=== PATIENT | female | born 1935 | race Caucasian/White ===

== ENCOUNTER 2016-12-05 17:53 | Inpatient (IN) | payer MEDICARE, BC ==
[2016-12-05] MEDS ORDERED: Famotidine IV* 10 MG/ML 2 ML (20 mg) IV ONE (18:47)
[2016-12-05] MEDS ORDERED: Ondansetron INJ* 2 MG/ML VIAL IV ONE (18:47)
[2016-12-05] MEDS ORDERED: NS 0.9% 1000 ML* 1,000 ML IV ONE (18:47)
[2016-12-05 19:32] LABS: Hematocrit 25 % (35-47); Mean Corpuscular HGB Conc 28 g/dl (31-36); Mean Corpuscular Hemoglobin 17 pg (27-31); Mean Corpuscular Volume 59 fL (80-97); Mean Platelet Volume 8 um3 (7.4-10.4); Red Blood Count 4.15 10^6/ul (4.0-5.4); Red Cell Distribution Width 17 % (10.5-15); White Blood Count 18.5 10^3/ul (3.5-10.8)
[2016-12-05 19:34] LABS: Add Diff/Slide Review? Slide Review Added; Comments Flag Yes
[2016-12-05 19:54] LABS: ALT 10 U/L (7-52); Albumin 3.7 g/dL (3.2-5.2); Alkaline Phosphatase 102 U/L (34-104); Amylase 121 U/L (29-103); Blood Urea Nitrogen 16 mg/dL (6-24); C Reactive Protein 91.29 mg/L (< 5.00); CO2 Carbon Dioxide 22 mmol/L (22-32); Calcium 9.6 mg/dL (8.6-10.3); Chloride 102 mmol/L (101-111); EGFR African American 88.5 (>60); EGFR Non-African American 68.8 (>60); Globulin 3.5 g/dL (2-4); Glucose 125 mg/dL (70-100); Lipase 475 U/L (11.0-82.0); Sodium 134 mmol/L (133-145); Total Protein 7.2 g/dL (6.4-8.9)
[2016-12-05 19:55] LABS: Troponin I 0.01 ng/mL (<0.04)
[2016-12-05] MEDS ORDERED: Iohexol 300* (CONTRAST) 10 ML SDV IV ONE (20:31)
[2016-12-05] MEDS ORDERED: LORazepam INJ* 2 MG/ML 1 ML VIAL IV PRN (20:53)
[2016-12-05] MEDS ORDERED: Ondansetron INJ* 2 MG/ML VIAL IV PRN (20:54)
[2016-12-05] MEDS ORDERED: Pantoprazole IV* 40 MG IV SCH (21:00)
[2016-12-05 21:06] LABS: AST 18 U/L (13-39); Anion Gap 10 mmol/L (2-11); Potassium 3.8 mmol/L (3.5-5.0)
[2016-12-05 21:14] LABS: Corrected Retic Count 0.9 % (0.5-1.5); Immature Retic Fraction 0.41
[2016-12-05 21:26] LABS: Total Iron Binding Capacity 542 mcg/dL (250-450); Transferrin 387 mg/dL (203-362)
[2016-12-05] MEDS: HYDROmorphone INJ* 1 MG/ML CARPUJECT SYRINGE IV PRN ×2 (21:38→23:28)
[2016-12-05 21:44] LABS: Iron 12 ug/dL (50-212)
[2016-12-05 21:47] LABS: Ferritin 11.3 ng/mL (11-307)
[2016-12-05 21:50] LABS: Folate > 20.00 ng/mL (>3.99)
[2016-12-05 21:51] LABS: Vitamin B12 > 1450 pg/mL (180-914)
--- NOTE | 2016-12-05 21:54 | RAD ---
INDICATION: Abdominal pain. Surgical history includes partial hysterectomy. COMPARISON: April 17, 2004 TECHNIQUE: Multidetector CT images were obtained from the lung bases to the ischial tuberosities with 76 mL Omnipaque 300 IV and oral contrast. Multiplanar reformation. REPORT: Mild bibasilar atelectasis and pleural-parenchymal scarring. 3 mm low suspicion. Fissural nodule at the RIGHT middle lobe. Mild cardiomegaly. Unremarkable liver. Partially decompressed gallbladder without suspicious finding. Peripancreatic inflammation the level of the pancreatic tail which appears secondary to a posterior gastric body perforation with extravasation of enteric contrast to the lesser sac. The gastric perforation is likely approximately 0.8 cm diameter. Loculated gas and fluid collection in the lesser sac measures up to 2.6 cm AP by 2.5 cm transverse by 2.0 cm cephalocaudal. Surrounding inflammatory change. Unremarkable spleen. Patent splenic vein, superior mesenteric vein, and portal vein. Mildly dilated small bowel loops at the LEFT upper quadrant are most consistent with secondary ileus. Nonetheless there is propagation of enteric contrast to the rectum without evidence for bowel obstruction. Top normal diameter retrocecal appendix without inflammatory change. Severe colonic diverticulosis at the sigmoid colon without findings of diverticulitis. Negative for appreciable ascites. Negative for free intraperitoneal air. Small fat-containing umbilical hernia without inflammatory change. Normal adrenal glands. Small renal cortical cysts. Anterolateral contour irregularity of the LEFT kidney at the junction of the mid and upper poles is without significant change compared with the 2004 exam without concern. No suspicious focal renal lesions or hydronephrosis. Symmetric renal contrast excretion. Negative for ureteral dilatation. The distal ureters are poorly visualized due to artifact from the LEFT hip prosthesis. Decompressed urinary bladder limiting assessment. Mildly enlarged centrally hypodense LEFT ovary. Unremarkable RIGHT adnexal region. Negative for lymphadenopathy. Mild atherosclerotic plaque. Negative for aortoiliac aneurysm. Physiologic distention of the IVC. Healed RIGHT inferior pubic ramus fracture. Osteoporotic compression fractures at L1, L2, and L3 with mild dorsal bulging of the middle column at L1 resulting in mild acquired central canal stenosis. The fractures are new compared with the 2004 exam without gross stigmata of acute or subacute fracture. At the cephalad margin of the [id number] multiple severe compression fractures of the mid thoracic spine are noted. IMPRESSION: The constellation of findings is most consistent with a perforated gastric ulcer with loculated gas and fluid collection in the lesser sac including extravasated enteric contrast from the stomach. Surrounding inflammatory change including surrounding the tail of the pancreas. Negative for associated splenic vein thrombosis. Results discussed with Charge Nurse Catherine in the ED 12/05/2016 9:50 PM EST
[2016-12-05] MEDS ORDERED: Piperac/Tazob 3.375 gm in NS* 3.375 GM/100 ML BAG IVPB ONE (22:04)
[2016-12-05] MEDS ORDERED: Pantoprazole IV* 40 MG IV ONE (22:35)
[2016-12-05] MEDS ORDERED: levETIRAcetam 500 MG IVPREMIX* 500 MG/100 ML BAG IV SCH (23:00)
[2016-12-05] MEDS: Pantoprazole IV* 80 MG in NS 0.9% 250 ML* 250 ML IVPB SCH (23:15)
[2016-12-06 00:29] LABS: Urine Bilirubin Negative (Negative); Urine Glucose Negative (Negative); Urine Nitrite Negative (Negative)
[2016-12-06] MEDS ORDERED: levETIRAcetam 500 MG IVPREMIX* 500 MG/100 ML BAG IV ONE (01:00)
[2016-12-06] MEDS: HYDROmorphone INJ* 1 MG/ML CARPUJECT SYRINGE IV PRN ×3 (01:13→04:10)
--- NOTE | 2016-12-06 03:09 | HP ---
H&P (Free Text) History and Physical: PCP: Licha Matthews MD Date/Time of Evaluation: 12/05/20152039 CC: abdominal pain HPI: Mrs Rubin is an 80YO female HX CVA, seizures, HTN, & HLD presents with several weeks of abdominal pain worsening for the past 2 weeks which she has attributed to starting alendronate for osteoporosis. Today her abdominal pain increased to 8/10 severity prompting her to present for evaluation. She denies chest pain, SOB, B/U/F of urine, black or bloody stools, or other issues. Evaluation is most notable for a CT abd/pel W revealing a perforated gastric ulcer. Vitals are hypertensive, otherwise stable. Labs show WBCs of 18.5k w/ 88.5% neutrophils, microcytic anemia HGB of 7.0 (baseline 13), & lipase of 475. PMedHx CVA/TIA seizure disorder HTN HLD hypothyroidism acoustic neuroma dementia Allergies No Known Allergies Allergy (Verified 12/11/15 15:33) Ambulatory Orders Atenolol TAB* [Tenormin TAB* 25 MG] 25 mg PO BID 05/17/14 Atorvastatin* [Lipitor 10 MG*] 40 mg PO 1700 05/17/14 Cyanocobalamin [Vitamin B12] 1,000 mcg PO DAILY 05/17/14 Donepezil TAB* [Aricept TAB*] 10 mg PO QPM 05/17/14 Irbesartan (NF) [Avapro (NF)] 300 mg PO QAM 05/17/14 Levothyroxine TAB* [Synthroid 25 MCG TAB*] 50 mcg PO DAILY 05/17/14 Memantine TAB* [Namenda TAB*] 10 mg PO QPM 05/17/14 Aspirin EC Low Dose* [Ecotrin EC Low Dose*] 81 mg PO DAILY 10/09/14 amLODIPine TAB* [Norvasc TAB*] 5 mg PO DAILY 10/09/14 Levetiracetam [Keppra 500] 500 mg PO BID 12/05/16 PSurgHx thyroidectomy hysterectomy L SABINA shoulder replacement SocHx: no tobacco, alcohol, or recreational drugs; lives with her ; retired from [employer]; full code status FamHx: reviewed, non-contributory ROS: as above, otherwise reviewed and all were negative Constitutional: NAD, normally developed, well-nourished elderly female vitals: Vital Signs Temp 36.8 C 12/06/16 02:55 Pulse 78 12/06/16 02:30 Resp 20 12/06/16 01:13 BP 137/49 12/06/16 02:30 Pulse Ox 96 12/06/16 02:30 Intake & Output 12/05/16 12/05/16 12/06/16 11:59 23:59 11:59 Intake Total 1000 200 Balance 1000 200 Weight 132 lb Intake: IV Fluids 1000 100 IVPB 100 HEENM: atraumatic; sclera/conjunctiva: non-icteric/clear; hearing: deaf , clinically decreased AD; oropharynx: clear, mucosa tacky Neck: soft tissue: non-tender; thyroid: normal Pulmonary: clear to auscultation bilaterally, good aeration, no accessory muscle use CV: RR/RR, normal S1S2, no carotid bruit, no jugular venous distention, 2+ B DP/ PT, no edema Abdominal: soft, non-distended, mildly tender epigastrum with mild voluntary guarding but no rebound/rigidity, hypoactive bowel sounds, no hepatosplenomegaly or masses, no costovertebral angle tenderness Musculoskeletal: general: grossly intact; gait: stable Integumental: normal appearance and texture Testing: Lab Results 12/05/16 12/05/16 12/05/16 Range/Units 19:20 19:20 19:20 WBC 18.5 H (3.5-10.8) 10^3/ul RBC 4.15 (4.0-5.4) 10^6/ul RBC (Retic) 4.15 L (4.6-6.2) 10^6/ul Hgb 7.0 L (12.0-16.0) g/dl Hct 25 L (35-47) % HCT (Retic) 25 L (35-47) % MCV 59 L (80-97) fL MCH 17 L (27-31) pg MCHC 28 L (31-36) g/dl RDW 17 H (10.5-15) % Plt Count 633 H (150-450) 10^3/ul MPV 8 (7.4-10.4) um3 Neut % (Auto) 88.5 H (38-83) % Lymph % (Auto) 5.6 L (25-47) % [place] % (Auto) 4.8 (1-9) % Eos % (Auto) 0.6 (0-6) % Baso % (Auto) 0.5 (0-2) % Absolute Neuts (auto) 16.3 H (1.5-7.7) 10^3/ul Absolute Lymphs (auto) 1.0 (1.0-4.8) 10^3/ul Absolute Monos (auto) 0.9 H (0-0.8) 10^3/ul Absolute Eos (auto) 0.1 (0-0.6) 10^3/ul Absolute Basos (auto) 0.1 (0-0.2) 10^3/ul Absolute Nucleated RBC 0 10^3/ul Nucleated RBC % 0 Retic Count, Calc 1.7 H (0.5-1.5) % Corrected Retic Count 0.9 (0.5-1.5) % Retic Shift Factor 2.0 Retic Production Index 0.50 Immature Retic Fraction 0.41 Mean Retic Volume 80.0 Sodium 134 (133-145) mmol/L Potassium 3.8 (3.5-5.0) mmol/L Chloride 102 (101-111) mmol/L Carbon Dioxide 22 (22-32) mmol/L Anion Gap 10 (2-11) mmol/L BUN 16 (6-24) mg/dL Creatinine 0.80 (0.51-0.95) mg/dL Est GFR ( Amer) 88.5 (>60) Est GFR (Non-Af Amer) 68.8 (>60) BUN/Creatinine Ratio 20.0 (8-20) Glucose 125 H (70-100) mg/dL Calcium 9.6 (8.6-10.3) mg/dL Iron 12 L (50-212) ug/dL TIBC 542 H (250-450) mcg/dL % Saturation 2 L (15-55) % Unsat Iron Binding 530 ug/dL Ferritin 11.3 (11-307) ng/mL Total Bilirubin 0.40 (0.2-1.0) mg/dL AST 18 (13-39) U/L ALT 10 (7-52) U/L Alkaline Phosphatase 102 (34-104) U/L Lactate Dehydrogenase 387 H (140-271) U/L Troponin I 0.01 (<0.04) ng/mL C-Reactive Protein 91.29 H (< 5.00) mg/L Total Protein 7.2 (6.4-8.9) g/dL Albumin 3.7 (3.2-5.2) g/dL Globulin 3.5 (2-4) g/dL Albumin/Globulin Ratio 1.1 (1-3) Amylase 121 H (29-103) U/L Lipase 475 H (11.0-82.0) U/L Vitamin B12 > 1450 H (180-914) pg/mL Folate > 20.00 (>3.99) ng/mL Urine Color Urine Appearance Urine pH (5-9) Ur Specific [place] (1.010-1.030) Urine Protein (Negative) Urine Ketones (Negative) Urine Blood (Negative) Urine Nitrate (Negative) Urine Bilirubin (Negative) Urine Urobilinogen (Negative) Ur Leukocyte Esterase (Negative) Urine Glucose (Negative) Blood Type A Negative Antibody Screen Pending Crossmatch See Detail 12/06/16 Range/Units 00:10 WBC (3.5-10.8) 10^3/ul RBC (4.0-5.4) 10^6/ul RBC (Retic) (4.6-6.2) 10^6/ul Hgb (12.0-16.0) g/dl Hct (35-47) % HCT (Retic) (35-47) % MCV (80-97) fL MCH (27-31) pg MCHC (31-36) g/dl RDW (10.5-15) % Plt Count (150-450) 10^3/ul MPV (7.4-10.4) um3 Neut % (Auto) (38-83) % Lymph % (Auto) (25-47) % [place] % (Auto) (1-9) % Eos % (Auto) (0-6) % Baso % (Auto) (0-2) % Absolute Neuts (auto) (1.5-7.7) 10^3/ul Absolute Lymphs (auto) (1.0-4.8) 10^3/ul Absolute Monos (auto) (0-0.8) 10^3/ul Absolute Eos (auto) (0-0.6) 10^3/ul Absolute Basos (auto) (0-0.2) 10^3/ul Absolute Nucleated RBC 10^3/ul Nucleated RBC % Retic Count, Calc (0.5-1.5) % Corrected Retic Count (0.5-1.5) % Retic Shift Factor Retic Production Index Immature Retic Fraction Mean Retic Volume Sodium (133-145) mmol/L Potassium (3.5-5.0) mmol/L Chloride (101-111) mmol/L Carbon Dioxide (22-32) mmol/L Anion Gap (2-11) mmol/L BUN (6-24) mg/dL Creatinine (0.51-0.95) mg/dL Est GFR ( Amer) (>60) Est GFR (Non-Af Amer) (>60) BUN/Creatinine Ratio (8-20) Glucose (70-100) mg/dL Calcium (8.6-10.3) mg/dL Iron (50-212) ug/dL TIBC (250-450) mcg/dL % Saturation (15-55) % Unsat Iron Binding ug/dL Ferritin (11-307) ng/mL Total Bilirubin (0.2-1.0) mg/dL AST (13-39) U/L ALT (7-52) U/L Alkaline Phosphatase (34-104) U/L Lactate Dehydrogenase (140-271) U/L Troponin I (<0.04) ng/mL C-Reactive Protein (< 5.00) mg/L Total Protein (6.4-8.9) g/dL Albumin (3.2-5.2) g/dL Globulin (2-4) g/dL Albumin/Globulin Ratio (1-3) Amylase (29-103) U/L Lipase (11.0-82.0) U/L Vitamin B12 (180-914) pg/mL Folate (>3.99) ng/mL Urine Color Straw Urine Appearance Clear Urine pH 6.0 (5-9) Ur Specific [place] 1.006 L (1.010-1.030) Urine Protein Negative (Negative) Urine Ketones Negative (Negative) Urine Blood Negative (Negative) Urine Nitrate Negative (Negative) Urine Bilirubin Negative (Negative) Urine Urobilinogen Negative (Negative) Ur Leukocyte Esterase Negative (Negative) Urine Glucose Negative (Negative) Blood Type Antibody Screen Crossmatch ECG, personally reviewed: NSR rate 77, no ischemia CT abd/pel WO, personally reviewed: IMPRESSION: The constellation of findings is most consistent with a perforated gastric ulcer with loculated gas and fluid collection in the lesser sac including extravasated enteric contrast from the stomach. Surrounding inflammatory change including surrounding the tail of the pancreas. Negative for associated splenic vein thrombosis. Impression: 80F presenting with a perforated gastric ulcer DIAGNOSIS & PLAN Primary perforated gastric ulcer : pain control : IVFs : maintain NPO : IV piperacillin : Sonali Harrell MD surgery consulted, evaluated in ED : supportive care anemia, microcytic : anemia labs : stool for occult blood : give 2units pRBCs : trend Secondary CVA/TIA : no acute issues seizure disorder : continue levetiracetam 500mg IV BID HTN : hold anti-hypertensives in current setting, monitor : PRN hydralazine IV PRN systolic >170 HLD : hold atorvastatin until taking PO again hypothyroidism : dose low enough to hold until taking PO again acoustic neuroma : deaf , no acute issues dementia : hold donepezil & memantine until taking PO again Admission Rational: inpatient for acute pancreatitis not anticipated to improve adequately to allow discharge w/i 48h DVTp: SCDs, no anticoagulation 2nd moderate anemia appearing to be chronic blood loss Code Status: full HCP:
[2016-12-06] MEDS: NS 0.9% 1000 ML* 1,000 ML IV SCH ×4 (03:15→19:42)
[2016-12-06] MEDS ORDERED: Piperac/Tazob 3.375 gm in NS* 3.375 GM/100 ML BAG IVPB SCH (04:00)
[2016-12-06 04:12] LABS: Hematocrit 22 % (35-47); Mean Corpuscular HGB Conc 28 g/dl (31-36); Mean Corpuscular Hemoglobin 17 pg (27-31); Mean Platelet Volume 8 um3 (7.4-10.4); Red Blood Count 3.68 10^6/ul (4.0-5.4); Red Cell Distribution Width 17 % (10.5-15); White Blood Count 12.8 10^3/ul (3.5-10.8)
[2016-12-06 04:13] LABS: Comments Flag Yes; Mean Corpuscular Volume 59 fL (80-97)
[2016-12-06 04:17] LABS: Add Diff/Slide Review? Slide Review Added; Hemoglobin 6.1 g/dl (12.0-16.0)
[2016-12-06 04:18] LABS: BUN/Creatinine Ratio 15.7 (8-20); Calcium 8.4 mg/dL (8.6-10.3); EGFR African American 103.3 (>60); EGFR Non-African American 80.3 (>60); Potassium 3.6 mmol/L (3.5-5.0)
[2016-12-06 05:41] LABS: Hypochromasia 2+; Microcytosis 2+
[2016-12-06] MEDS: Piperac/Tazob 3.375 gm in NS* 3.375 GM/100 ML BAG IVPB SCH ×3 (05:42→21:19)
--- NOTE | 2016-12-06 09:25 | CONS ---
CC: Aaron Matthews DO; [facility] SURGICAL CONSULTATION: DATE OF CONSULT: 12/06/16 The patient was seen in the emergency room on 12/06/16. HISTORY OF PRESENT ILLNESS: I was contacted by the emergency room staff to evaluate Ms. Rubin, an 80-year-old female, who presented to [facility] emergency room today with complaints of u pset stomach, total body aches, and decreased appetite. Her workup in the emergency room was consis tent with labs as well as a CAT scan of the abdomen and pelvis. The CAT scan of the abdomen and pel vis was read as suggestive of a perforated posterior gastric ulcer with contrast in the lesser sac a long with bubble of air and surgical consultation was requested. The patient states she was in her regular good health until a month and half ago when she was starte d on alendronate, possibly for back pain or musculoskeletal pain. Since starting it, she continued to have discomfort in the abdomen, decreased appetite, and nausea but no vomiting. The patient's pa in is relieved with NSAIDs and she took Aleve on top of her regular 81 mg aspirin. Approximately 2 weeks ago, she did stop taking the medication altogether and she has continued to wo rsen. Her son saw her today and wanted her to come to the emergency room. The patient does not describe today as being any worse than some of the other days that she has deal t within this past week and still states that the whole issue has been over a month in the making. She has decreased appetite. Abdominal complaints are intermittent with distended abdomen according to the patient's son at times, but not currently. She does consistently have back pain. Denies any significant weight loss. No fevers or chills. No change in bowel habits. PAST MEDICAL HISTORY: Alzheimer's, hypothyroidism, and hypercholesterolemia. MEDICATIONS: Include: 1. Amlodipine. 2. Aspirin. 3. Synthroid. 4. Avapro. 5. Vitamin B12. 6. Atenolol. 7. Keppra. ALLERGIES: She has no known drug allergies. FAMILY HISTORY: Noncontributory. SOCIAL HISTORY: She lives at home with her . PHYSICAL EXAM: She is afebrile. Vital signs are stable. Blood pressure 137/49 and heart rate 78. She is alert and oriented x3, in no apparent distress, sitting comfortably on stretcher, laughing a t times. Abdomen is soft and nondistended. Minimally tender on deep palpation on the periumbilical region. Hypoactive bowel sounds. Rectal Exam: Not performed. Extremities: Within normal limits. DIAGNOSTIC STUDIES/LAB DATA: Labs show a white count of 18.5 with a left shift and H and H 7/25, wh ich is not far from her last hematocrit of 17 in August of last year, her hematocrits were in the l ow 40s. She has low iron levels. Elevated CRP of 91 and elevated amylase and lipase levels as well . CAT scan of the abdomen and pelvis was reviewed, it was with p.o. and IV contrast and did show advan cement of contrast to the rectum without obstruction. No ascites. No significant free air; however , in the lesser sac, the patient has a possible enteric contrast along with loculated gas bubble, me asuring 2.5 cm with surrounding inflammatory change. IMPRESSION: Longstanding abdominal pain, now with CT scan consistent with what seems to be perforat ion in the posterior stomach, but in a patient who has been showing significant anemia and is unclea r what the etiology of her abdominal pain is. This may very well be ulcer, either bleeding or perfo rated, both. Given the benign nature of her exam and her normal vitals, my inclination at this time would be IV antibiotics, bowel rest, IV fluids, and serial abdominal exams. I described to her and her and son that she probably need a trip to the operating room to evaluate this, but with this active exam at this point, I feel proton pump inhibitors, stopping NSAID use, and watchful wait ing in this 80-year-old woman is not unreasonable. The potential diagnosis noted on CT scan does represent a surgical emergency; however, the patient i s not behaving with peritoneal signs or active sepsis. I described again with regards to this to e family. At some point, we did think of taking her to the operating room at this movement, but sti ll feel at this juncture, this is the next best step with an eye on operative intervention should [facility] patient show no changes or certainly worsen. [id number]/[facility] #: [id number]
[2016-12-06] MEDS: Pantoprazole IV* 80 MG in NS 0.9% 250 ML* 250 ML IVPB SCH ×2 (09:42→21:19)
--- NOTE | 2016-12-06 10:27 | PN ---
Progress Note - Progress Note SOAP: Subjective: Sitting up in chair without complaint this morning. No abdominal pain or N/V Objective: Temp Pulse Resp BP Pulse Ox 99.0 F 73 20 142/56 97 12/06/16 09:23 12/06/16 09:23 12/06/16 09:23 12/06/16 09:23 12/06/16 09:23 Intake & Output 12/04/16 12/05/16 12/06/16 12/07/16 06:59 06:59 06:59 06:59 Intake Total 1200 Output Total 450 275 Balance 750 -275 Weight 132 lb Intake: IV Fluids 1100 IVPB 100 Oral 0 Output: Urine 450 275 PEX: Comfortable. Awake and alert, oriented X3 Abd is soft and non-distended. No tenderness, normal bowel sounds throughout. Laboratory Results - last 24 hr 12/05/16 12/05/16 12/05/16 19:20 19:20 19:20 WBC 18.5 H RBC 4.15 RBC (Retic) 4.15 L Hgb 7.0 L Hct 25 L HCT (Retic) 25 L MCV 59 L MCH 17 L MCHC 28 L RDW 17 H Plt Count 633 H MPV 8 Neut % (Auto) 88.5 H Lymph % (Auto) 5.6 L [place] % (Auto) 4.8 Eos % (Auto) 0.6 Baso % (Auto) 0.5 Absolute Neuts (auto) 16.3 H Absolute Lymphs (auto) 1.0 Absolute Monos (auto) 0.9 H Absolute Eos (auto) 0.1 Absolute Basos (auto) 0.1 Absolute Nucleated RBC 0 Nucleated RBC % 0 Normal RBC Morphology Hypochromasia Microcytosis Elliptocytes Retic Count, Calc 1.7 H Corrected Retic Count 0.9 Retic Shift Factor 2.0 Retic Production Index 0.50 Immature Retic Fraction 0.41 Mean Retic Volume 80.0 Sodium 134 Potassium 3.8 Chloride 102 Carbon Dioxide 22 Anion Gap 10 BUN 16 Creatinine 0.80 Est GFR ( Amer) 88.5 Est GFR (Non-Af Amer) 68.8 BUN/Creatinine Ratio 20.0 Glucose 125 H Lactic Acid Calcium 9.6 Iron 12 L TIBC 542 H % Saturation 2 L Unsat Iron Binding 530 Ferritin 11.3 Total Bilirubin 0.40 AST 18 ALT 10 Alkaline Phosphatase 102 Lactate Dehydrogenase 387 H Troponin I 0.01 C-Reactive Protein 91.29 H Total Protein 7.2 Albumin 3.7 Globulin 3.5 Albumin/Globulin Ratio 1.1 Amylase 121 H Lipase 475 H Vitamin B12 > 1450 H Folate > 20.00 Urine Color Urine Appearance Urine pH Ur Specific [place] Urine Protein Urine Ketones Urine Blood Urine Nitrate Urine Bilirubin Urine Urobilinogen Ur Leukocyte Esterase Urine Glucose Blood Type A Negative Antibody Screen Negative Crossmatch See Detail 12/06/16 12/06/16 12/06/16 00:10 03:55 03:55 WBC RBC RBC (Retic) Hgb Hct HCT (Retic) MCV MCH MCHC RDW Plt Count MPV Neut % (Auto) Lymph % (Auto) [place] % (Auto) Eos % (Auto) Baso % (Auto) Absolute Neuts (auto) Absolute Lymphs (auto) Absolute Monos (auto) Absolute Eos (auto) Absolute Basos (auto) Absolute Nucleated RBC Nucleated RBC % Normal RBC Morphology Hypochromasia Microcytosis Elliptocytes Retic Count, Calc Corrected Retic Count Retic Shift Factor Retic Production Index Immature Retic Fraction Mean Retic Volume Sodium 136 Potassium 3.6 Chloride 110 Carbon Dioxide 20 L Anion Gap 6 BUN 11 Creatinine 0.70 Est GFR ( Amer) 103.3 Est GFR (Non-Af Amer) 80.3 BUN/Creatinine Ratio 15.7 Glucose 96 Lactic Acid 0.6 Calcium 8.4 L Iron TIBC % Saturation Unsat Iron Binding Ferritin Total Bilirubin AST ALT Alkaline Phosphatase Lactate Dehydrogenase Troponin I C-Reactive Protein Total Protein Albumin Globulin Albumin/Globulin Ratio Amylase Lipase 111 H Vitamin B12 Folate Urine Color Straw Urine Appearance Clear Urine pH 6.0 Ur Specific [place] 1.006 L Urine Protein Negative Urine Ketones Negative Urine Blood Negative Urine Nitrate Negative Urine Bilirubin Negative Urine Urobilinogen Negative Ur Leukocyte Esterase Negative Urine Glucose Negative Blood Type Antibody Screen Crossmatch 12/06/16 03:55 WBC 12.8 H RBC 3.68 L RBC (Retic) Hgb 6.1 L* Hct 22 L HCT (Retic) MCV 59 L MCH 17 L MCHC 28 L RDW 17 H Plt Count 490 H D MPV 8 Neut % (Auto) 84.3 H Lymph % (Auto) 8.9 L [place] % (Auto) 5.2 Eos % (Auto) 1.0 Baso % (Auto) 0.6 Absolute Neuts (auto) 10.8 H Absolute Lymphs (auto) 1.1 Absolute Monos (auto) 0.7 Absolute Eos (auto) 0.1 Absolute Basos (auto) 0.1 Absolute Nucleated RBC 0.01 Nucleated RBC % 0.1 Normal RBC Morphology Not Reportable Hypochromasia 2+ Microcytosis 2+ Elliptocytes 1+ Retic Count, Calc Corrected Retic Count Retic Shift Factor Retic Production Index Immature Retic Fraction Mean Retic Volume Sodium Potassium Chloride Carbon Dioxide Anion Gap BUN Creatinine Est GFR ( Amer) Est GFR (Non-Af Amer) BUN/Creatinine Ratio Glucose Lactic Acid Calcium Iron TIBC % Saturation Unsat Iron Binding Ferritin Total Bilirubin AST ALT Alkaline Phosphatase Lactate Dehydrogenase Troponin I C-Reactive Protein Total Protein Albumin Globulin Albumin/Globulin Ratio Amylase Lipase Vitamin B12 Folate Urine Color Urine Appearance Urine pH Ur Specific [place] Urine Protein Urine Ketones Urine Blood Urine Nitrate Urine Bilirubin Urine Urobilinogen Ur Leukocyte Esterase Urine Glucose Blood Type Antibody Screen Crossmatch Assessment: Abdominal pain-chronic and improved CT with posterior gastric ?? perforation v large penetrating gastric ulcer without free contrast extravasation or free air Microcytic anemia NSAID use No signs of peritonitis or sepsis. Plan: I reviewed findings also with Dr. Harrell-this most likely represents a more chronic posterior large penetrating gastric ulcer rather than an acute perforation. She has been using NSAID's in the past and is markedly anemic and although she is vague as to how long she has had pain, this appears to be chronic. For now we do not recommend emergent or urgent surgery. Would proceed with blood transfusion for now and PPI and keep NPO. She will need further workup including probable UGI and GI consult to consider EGD to make diagnosis and rule out malignancy. All of the above discussed with the patient and her this morning. We will follow closely with you.
--- NOTE | 2016-12-06 12:09 | ED ---
Darby Cardona Matthew, scribed for Arthur Dias MD on 12/05/16 at 1850 . Abdominal Pain/Female - HPI Summary HPI Summary: An 80 y/o female presents to the ED with diffuse abdominal pain since a week ago. The pain is rated 8/10 in severity. The patient states that she maybe having a reaction to fosamax, which she recently began taking every Thursday. Associated symptoms includes nausea, decreased appetite, diffuse body aches, and inability to sleep. The patient denies vomiting, fever, chills, chest pain, and SOB. - History of Current Complaint Chief Complaint: EDGeneral Stated Complaint: POSS MEDICATION REACTION Time Seen by Provider: 12/05/16 18:41 Hx Obtained From: Patient ?: No Onset/Duration: Gradual Onset, Lasting Days, Still Present Timing: Constant Severity Initially: Moderate Severity Currently: Moderate Pain Intensity: 8 Pain Scale Used: 0-10 Numeric Location: Diffuse Radiates: No Aggravating Factor(s): Other: - Touch Alleviating Factor(s): Nothing Associated Signs and Symptoms: Positive: Decreased Appetite, Nausea, Other: - diffuse body aches, inability to sleep. Negative: Fever, Chest Pain, Vomiting Allergies/Adverse Reactions: Allergies Allergy/AdvReac Type Severity Reaction Status Date / Time No Known Allergies Allergy Verified 12/11/15 15:33 Home Medications: Home Medications Levetiracetam [Keppra 500] 500 mg PO BID 12/05/16 [History Confirmed 12/05/16] PMH/Surg Hx/FS Hx/Imm Hx Endocrine/Hematology History: Reports: Hx Thyroid Disease Denies: Hx Diabetes Cardiovascular History: Reports: Hx Hypertension Denies: Hx Pacemaker/ICD GI History: Reports: Hx Gastroesophageal Reflux Disease, Other GI Disorders - Hx GERD History: Denies: Hx Kidney Stones, Hx Renal Disease Musculoskeletal History: Reports: Hx Arthritis, Hx Back Problems, Hx Orthopedic Injury - right shoulder, left hip replaced, Hx Osteoporosis, Other Musculoskeletal History - R shoulder and L hip replacement Sensory History: Reports: Hx Contacts or Glasses, 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 HYSTERECTOMY. MAY 2008 RIGHT SHOULDER REPLACED Hx Anesthesia Reactions: No - Immunization History Date of Tetanus Vaccine: pt unsure Date of Influenza Vaccine: pt unsure Infectious Disease History: No Infectious Disease History: Reports: Hx Shingles - 1990 Denies: Traveled Outside the [place] in Last 30 Days - Family History Family History: FHx of breast CA - Mother - Social History Alcohol Use: None Substance Use Type: Reports: None Smoking Status (MU): Former Smoker Type: Cigarettes Have You Smoked in the Last Year: No Review of Systems Constitutional: Other - decreased appetite; inability to sleep Eyes: Negative ENT: Negative Cardiovascular: Negative Negative: Chest Pain Respiratory: Negative Negative: Shortness Of Breath Positive: Abdominal Pain - Diffuse , Nausea. Negative: Vomiting Genitourinary: Negative Positive: Myalgia - diffuse body aches Skin: Negative Neurological: Negative Psychological: Normal All Other Systems Reviewed And Are Negative: Yes Physical Exam - Summary Physical Exam Summary: VITAL SIGNS: Reviewed. GENERAL: Patient is a well developed and nourished female who is lying comfortable in the stretcher. Patient is not in any acute respiratory distress. HEAD AND FACE: Normocephalic and atraumatic. EYES: PERRLA, EOMI x 2, No injected conjunctiva. EARS: Hearing grossly intact. Ear canals and tympanic membranes are WNL. MOUTH: Oropharynx within normal limits. NECK: Supple, trachea is midline, no adenopathy, no JVD. CHEST: Symmetric, no tenderness at palpation LUNGS: Clear to auscultation bilaterally. No wheezing or crackles. CVS: RRR,, S1 and S2 present, no murmurs or gallops appreciated. ABDOMEN: Soft, positive epigastric tenderness. No signs of distention. Positive bowel sounds. No rebound no guarding, and no masses palpated. No abdominal bruit or pulsations. EXTREMITIES: FROM in all major joints, no edema, no cyanosis or clubbing. NEURO: Alert and oriented x 3. No acute neurological deficits. Speech is normal. SKIN: Dry and warm Triage Information Reviewed: Yes Vital Signs On Initial Exam: Initial Vitals Temp Pulse Resp BP Pulse Ox 98.5 F 85 16 185/64 100 12/05/16 18:06 12/05/16 18:06 12/05/16 18:06 12/05/16 18:06 12/05/16 18:06 Vital Signs Reviewed: Yes Diagnostics - Vital Signs Vital Signs Temp Pulse Resp BP Pulse Ox 12/05/16 18:06 98.5 F 85 16 185/64 100 - Laboratory Lab Results: Lab Results 12/05/16 12/05/16 Range/Units 19:20 19:20 WBC 18.5 H (3.5-10.8) 10^3/ul RBC 4.15 (4.0-5.4) 10^6/ul Hgb 7.0 L (12.0-16.0) g/dl Hct 25 L (35-47) % MCV 59 L (80-97) fL MCH 17 L (27-31) pg MCHC 28 L (31-36) g/dl RDW 17 H (10.5-15) % Plt Count 633 H (150-450) 10^3/ul MPV 8 (7.4-10.4) um3 Neut % (Auto) 88.5 H (38-83) % Lymph % (Auto) 5.6 L (25-47) % [place] % (Auto) 4.8 (1-9) % Eos % (Auto) 0.6 (0-6) % Baso % (Auto) 0.5 (0-2) % Absolute Neuts (auto) 16.3 H (1.5-7.7) 10^3/ul Absolute Lymphs (auto) 1.0 (1.0-4.8) 10^3/ul Absolute Monos (auto) 0.9 H (0-0.8) 10^3/ul Absolute Eos (auto) 0.1 (0-0.6) 10^3/ul Absolute Basos (auto) 0.1 (0-0.2) 10^3/ul Absolute Nucleated RBC 0 10^3/ul Nucleated RBC % 0 Sodium 134 (133-145) mmol/L Potassium Pending Chloride 102 (101-111) mmol/L Carbon Dioxide 22 (22-32) mmol/L Anion Gap Pending BUN 16 (6-24) mg/dL Creatinine 0.80 (0.51-0.95) mg/dL Est GFR ( Amer) 88.5 (>60) Est GFR (Non-Af Amer) 68.8 (>60) BUN/Creatinine Ratio 20.0 (8-20) Glucose 125 H (70-100) mg/dL Calcium 9.6 (8.6-10.3) mg/dL Total Bilirubin 0.40 (0.2-1.0) mg/dL AST Pending ALT 10 (7-52) U/L Alkaline Phosphatase 102 (34-104) U/L Troponin I 0.01 (<0.04) ng/mL C-Reactive Protein 91.29 H (< 5.00) mg/L Total Protein 7.2 (6.4-8.9) g/dL Albumin 3.7 (3.2-5.2) g/dL Globulin 3.5 (2-4) g/dL Albumin/Globulin Ratio 1.1 (1-3) Amylase 121 H (29-103) U/L Lipase 475 H (11.0-82.0) U/L Result Diagrams: 12/06/16 03:55 12/06/16 03:55 Lab Statement: Any lab studies that have been ordered have been reviewed, and results considered in the medical decision making process. - CT A/P CT Interpretation: Positive (See Comments) - IMPRESSION: The constellation of findings is most consistent with a perforated gastric ulcer with loculated gas and fluid collection in the lesser sac including extravasated enteric contrast from the stomach. Surrounding inflammatory change including surrounding the tail of the pancreas. Negative for associated splenic vein thrombosis. CT Interpretation Completed By: Radiologist Abdominal Pain Fem Course/Dx - Course Course Of Treatment: An 80 y/o female presents to the ED with a CC of abdominal pain. She reports that the pain started after taking fosamax two weeks ago. Test results WNL except WBC of 18.5 hemoglobin of 7 hematocrit of 25, MCV 59, glucose of 125, amylase of 121, and lipase of 475. The patient denies Hx of black stools or rectal bleeding. She does not remember when her last colonoscopy. I did a rectal exam and it showed no gross blood. The abdominal and pelvic CT shows a perforated gastric ulcer and surrounding inflammatory change including surrounding the tail of the pancreas. I discussed my findings with Dr. Harrell who will evaluate the patient. The patient is hemodynamically stable and A&Ox3. We are awaiting Dr. Harrell to evaluate the patient however he is still in a surgical case. Patient continues to be hemodynamically stabla and alert and oriented x 3. She is very confortable and has no pain. The patient will be signed out to Dr. Burleson and will follow Dr. Harrell recommendation. Patient was also seen by Dr. Nowak who consulted for the patient. - Diagnoses Provider Diagnoses: Perforated gastric ulcer, Pancreatitis - Provider Notifications Discussed Care Of Patient With: Dr. Nowak (Hospitalist) at 21:20 -- Notified of patient's history and will admit the patient into his services. Dr. Harrell (Surgery) at 22:00 -- Notified of patient's history and will evaluate the patient. Discharge - Discharge Plan Condition: Stable Disposition: ADMITTED TO [facility] Discharge Disposition Comment: The patient is signed out to Dr. Burleson pending Dr. Harrell's evaluation. The documentation as recorded by the Darby nicholas Matthew accurately reflects the service I personally performed and the decisions made by , Arthur Dias MD.
[2016-12-06] MEDS: levETIRAcetam 500 MG IVPREMIX* 500 MG/100 ML BAG IV SCH (13:49)
--- NOTE | 2016-12-06 16:57 | PN ---
Subjective Date of Service: 12/06/16 Interval History: Pt is feeling well. Her abdominal pain is much better. She has mild discomfort in the mid abdomen. She had a normal BM earlier today. Objective Active Medications: Hydralazine HCl (Apresoline Iv*) 10 mg IV Q4H PRN PRN Reason: Systolic >170 Hydromorphone HCl (Dilaudid Iv*) 0.5 mg IV Q2H PRN PRN Reason: PAIN Last Admin: 12/06/16 04:10 Dose: 0.5 mg Sodium Chloride (Ns 0.9% 1000 Ml*) 1,000 mls @ 100 mls/hr IV PER RATE COLLIN Sodium Chloride (Ns 0.9% 1000 Ml*) 1,000 mls @ 150 mls/hr IV PER RATE [facility] Last Admin: 12/06/16 10:00 Dose: 150 mls/hr Pantoprazole Sodium 80 mg/ (Sodium Chloride) 250 mls @ 25 mls/hr IVPB Q10H [facility] Last Admin: 12/06/16 09:42 Dose: 25 mls/hr Levetiracetam (Keppra Iv Premix*) 500 mg in 100 mls @ 400 mls/hr IV 0100,1300 [facility] Last Admin: 12/06/16 13:49 Dose: 400 mls/hr Piperacillin Sod/Tazobactam Sod (Zosyn 3.375 Gm In Ns Premix*) 3.375 gm in 100 mls @ 25 mls/hr IVPB Q8H [facility] Last Admin: 12/06/16 14:47 Dose: 25 mls/hr Levothyroxine Sodium (Synthroid Inj*) 25 mcg IV 0600 [facility] Ondansetron HCl (Zofran Inj*) 4 mg IV Q6H PRN PRN Reason: NAUSEA Last Admin: 12/06/16 01:13 Dose: 4 mg Vital Signs 12/06/16 12/06/16 12/06/16 02:55 03:00 03:21 Temperature 98.3 F Pulse Rate 77 78 Respiratory Rate Blood Pressure 143/46 (mmHg) O2 Sat by Pulse 95 95 Oximetry 12/06/16 12/06/16 12/06/16 03:27 03:30 04:00 Temperature Pulse Rate 79 80 Respiratory 20 Rate Blood Pressure 143/49 (mmHg) O2 Sat by Pulse 95 95 Oximetry 12/06/16 12/06/16 12/06/16 04:10 04:32 04:36 Temperature 98.3 F Pulse Rate 80 Respiratory 20 20 20 Rate Blood Pressure 141/52 (mmHg) O2 Sat by Pulse 98 Oximetry 12/06/16 12/06/16 12/06/16 05:10 05:28 07:55 Temperature 97.9 F 99.0 F Pulse Rate 86 78 Respiratory 16 16 24 Rate Blood Pressure 141/54 143/50 (mmHg) O2 Sat by Pulse 95 96 Oximetry 12/06/16 12/06/16 12/06/16 09:23 10:00 11:23 Temperature 99.0 F 97.8 F Pulse Rate 73 73 Respiratory 20 16 16 Rate Blood Pressure 142/56 138/54 (mmHg) O2 Sat by Pulse 97 98 Oximetry Oxygen Devices in Use Now: None Appearance: Elderly female lying in bed, NAD Eyes: No Scleral Icterus Ears/Nose/Mouth/Throat: Mucous Membranes Moist Respiratory: Symmetrical Chest Expansion and Respiratory Effort, Clear to Auscultation Cardiovascular: NL Sounds; No Murmurs; No JVD, RRR, No Edema Abdominal: - - BS+ soft, ND, mildly tender to palpation in the mid Extremities: No Clubbing, Cyanosis Skin: No Rash or Ulcers, No Nodules or Sclerosis Neurological: Alert and Oriented x 3 Result Diagrams: 12/06/16 03:55 12/06/16 03:55 Additional Lab and Data: Lab Results 12/05/16 12/05/16 Range/Units 19:20 19:20 WBC 18.5 H (3.5-10.8) 10^3/ul RBC 4.15 (4.0-5.4) 10^6/ul Hgb 7.0 L (12.0-16.0) g/dl Hct 25 L (35-47) % MCV 59 L (80-97) fL MCH 17 L (27-31) pg MCHC 28 L (31-36) g/dl RDW 17 H (10.5-15) % Plt Count 633 H (150-450) 10^3/ul MPV 8 (7.4-10.4) um3 Neut % (Auto) 88.5 H (38-83) % Lymph % (Auto) 5.6 L (25-47) % [place] % (Auto) 4.8 (1-9) % Eos % (Auto) 0.6 (0-6) % Baso % (Auto) 0.5 (0-2) % Absolute Neuts (auto) 16.3 H (1.5-7.7) 10^3/ul Absolute Lymphs (auto) 1.0 (1.0-4.8) 10^3/ul Absolute Monos (auto) 0.9 H (0-0.8) 10^3/ul Absolute Eos (auto) 0.1 (0-0.6) 10^3/ul Absolute Basos (auto) 0.1 (0-0.2) 10^3/ul Absolute Nucleated RBC 0 10^3/ul Nucleated RBC % 0 Sodium 134 (133-145) mmol/L Potassium Pending Chloride 102 (101-111) mmol/L Carbon Dioxide 22 (22-32) mmol/L Anion Gap Pending BUN 16 (6-24) mg/dL Creatinine 0.80 (0.51-0.95) mg/dL Est GFR ( Amer) 88.5 (>60) Est GFR (Non-Af Amer) 68.8 (>60) BUN/Creatinine Ratio 20.0 (8-20) Glucose 125 H (70-100) mg/dL Calcium 9.6 (8.6-10.3) mg/dL Total Bilirubin 0.40 (0.2-1.0) mg/dL AST Pending ALT 10 (7-52) U/L Alkaline Phosphatase 102 (34-104) U/L Troponin I 0.01 (<0.04) ng/mL C-Reactive Protein 91.29 H (< 5.00) mg/L Total Protein 7.2 (6.4-8.9) g/dL Albumin 3.7 (3.2-5.2) g/dL Globulin 3.5 (2-4) g/dL Albumin/Globulin Ratio 1.1 (1-3) Amylase 121 H (29-103) U/L Lipase 475 H (11.0-82.0) U/L Assess/Plan/Problems-Billing Ms Rubin is an 80 yo F who has a h/o osteoporosis, seizure disorder, HTN, hypothyroidism and mild dementia who presented to the ER with c/o abdominal pain and was found to be markedly anemic with possible large gastric ulceration vs perforation. - Patient Problems (1) Gastric ulcer due to nonsteroidal anti-inflammatory drug (NSAID) Current Visit: Yes Status: Acute Code(s): T39.391A - POISONING BY OTH NONSTEROID ANTI-INFLAM DRUGS, ACC, INIT; K25.9 - GASTRIC ULCER, UNSP ACUTE OR CHRONIC, W/O HEMOR OR PERF SNOMED Code(s): 405810573 Comment: Likely the patient developed an ulcer from aleve and fosamax use. Continue protonix drip. GI consult tomorrow AM-stable at this time so no hearn. Follow up H/H and transfuse if necessary (H/H <7/21). I will follow up with general surgery tomorrow for further recommendations. (2) Iron deficiency anemia Current Visit: Yes Status: Acute Code(s): D50.9 - IRON DEFICIENCY ANEMIA, UNSPECIFIED SNOMED Code(s): 85287722 Comment: The patient is markedly iron deficient. Likely slow losses from her gastric ulcer. Stool guaiac is negative at this time. Check H/H now. She has reportedly had 2 units PRBC transfused today. GI consult tomorrow. (3) Seizure disorder Current Visit: Yes Status: Acute Code(s): G40.909 - EPILEPSY, UNSP, NOT INTRACTABLE, WITHOUT STATUS EPILEPTICUS SNOMED Code(s): 508432532 Comment: Continue IV keppra while NPO. (4) HTN (hypertension) Current Visit: Yes Status: Chronic Code(s): I10 - ESSENTIAL (PRIMARY) HYPERTENSION SNOMED Code(s): 43143011 Comment: BP is mildly elevated off her usual home medications. Continue to follow and use IV medications if BP markedly elevated. (5) Dementia Current Visit: Yes Status: Chronic Code(s): F03.90 - UNSPECIFIED DEMENTIA WITHOUT BEHAVIORAL DISTURBANCE SNOMED Code(s): 71262815 Comment: Namenda and aricept are on hold while NPO. (6) Hypothyroid Current Visit: Yes Status: Chronic Code(s): E03.9 - HYPOTHYROIDISM, UNSPECIFIED SNOMED Code(s): 62288464 Comment: Start IV synthroid. (7) DVT prophylaxis Current Visit: Yes Status: Acute Code(s): HQK5775 - SNOMED Code(s): 257550572 Comment: ambulation/SCDs (8) Full code status Current Visit: Yes Status: Acute Code(s): Z78.9 - OTHER SPECIFIED HEALTH STATUS SNOMED Code(s): 803492452
[2016-12-06 17:00] LABS: Hematocrit 30 % (35-47); Hemoglobin 8.9 g/dl (12.0-16.0)
[2016-12-06 17:01] LABS: Comments Flag Yes
[2016-12-06] MEDS ORDERED: Pantoprazole IV* 40 MG ONE (21:10)
[2016-12-07] MEDS: levETIRAcetam 500 MG IVPREMIX* 500 MG/100 ML BAG IV SCH ×2 (02:54→12:58)
[2016-12-07] MEDS: NS 0.9% 1000 ML* 1,000 ML IV SCH ×3 (04:07→13:41)
[2016-12-07] MEDS: Piperac/Tazob 3.375 gm in NS* 3.375 GM/100 ML BAG IVPB SCH ×3 (05:32→20:24)
[2016-12-07] MEDS: Levothyroxine INJ* 100 MCG/5 ML VIAL IV SCH (05:32)
[2016-12-07 06:47] LABS: BUN/Creatinine Ratio 11.5 (8-20); Calcium 7.6 mg/dL (8.6-10.3); EGFR African American 121.1 (>60); EGFR Non-African American 94.1 (>60); Potassium 3.5 mmol/L (3.5-5.0)
[2016-12-07] MEDS: Pantoprazole IV* 80 MG in NS 0.9% 250 ML* 250 ML IVPB SCH ×4 (06:47→23:35)
[2016-12-07 08:24] LABS: Hematocrit 30 % (35-47); Hemoglobin 8.9 g/dl (12.0-16.0); Mean Corpuscular HGB Conc 30 g/dl (31-36); Mean Corpuscular Hemoglobin 20 pg (27-31); Mean Platelet Volume 8 um3 (7.4-10.4); Red Blood Count 4.45 10^6/ul (4.0-5.4); Red Cell Distribution Width 25 % (10.5-15); White Blood Count 8.5 10^3/ul (3.5-10.8)
[2016-12-07 08:25] LABS: Comments Flag Yes; Mean Corpuscular Volume 68 fL (80-97)
[2016-12-07 08:26] LABS: Add Diff/Slide Review? Slide Review Added
--- NOTE | 2016-12-07 08:53 | PN ---
Subjective Date of Service: 12/07/16 Interval History: Pt is feeling well. She denies any pain. No SOB. She states she has been having good BMs. Objective Active Medications: Hydralazine HCl (Apresoline Iv*) 10 mg IV Q4H PRN PRN Reason: Systolic >170 Hydromorphone HCl (Dilaudid Iv*) 0.5 mg IV Q2H PRN PRN Reason: PAIN Last Admin: 12/06/16 04:10 Dose: 0.5 mg Sodium Chloride (Ns 0.9% 1000 Ml*) 1,000 mls @ 100 mls/hr IV PER RATE COLLIN Last Admin: 12/07/16 06:23 Dose: 100 mls/hr Pantoprazole Sodium 80 mg/ (Sodium Chloride) 250 mls @ 25 mls/hr IVPB Q10H [facility] Last Admin: 12/07/16 06:47 Dose: Not Given Levetiracetam (Keppra Iv Premix*) 500 mg in 100 mls @ 400 mls/hr IV 0100,1300 [facility] Last Admin: 12/07/16 02:54 Dose: 400 mls/hr Piperacillin Sod/Tazobactam Sod (Zosyn 3.375 Gm In Ns Premix*) 3.375 gm in 100 mls @ 25 mls/hr IVPB Q8H [facility] Last Admin: 12/07/16 05:32 Dose: 25 mls/hr Levothyroxine Sodium (Synthroid Inj*) 25 mcg IV 0600 [facility] Last Admin: 12/07/16 05:32 Dose: 25 mcg Ondansetron HCl (Zofran Inj*) 4 mg IV Q6H PRN PRN Reason: NAUSEA Last Admin: 12/06/16 01:13 Dose: 4 mg Vital Signs 12/06/16 12/06/16 12/06/16 09:23 10:00 11:23 Temperature 99.0 F 97.8 F Pulse Rate 73 73 Respiratory 20 16 16 Rate Blood Pressure 142/56 138/54 (mmHg) O2 Sat by Pulse 97 98 Oximetry 12/06/16 12/06/16 12/06/16 14:43 15:52 19:46 Temperature 99.0 F 98.1 F Pulse Rate 76 77 Respiratory 18 16 16 Rate Blood Pressure 156/61 137/65 (mmHg) O2 Sat by Pulse 99 98 Oximetry 12/06/16 12/06/16 12/07/16 20:15 23:10 04:07 Temperature 98.0 F 98.2 F 97.3 F Pulse Rate 81 84 82 Respiratory 16 16 16 Rate Blood Pressure 145/55 149/52 156/62 (mmHg) O2 Sat by Pulse 96 95 98 Oximetry 12/07/16 12/07/16 07:10 07:57 Temperature 97.6 F Pulse Rate 82 Respiratory 17 16 Rate Blood Pressure 166/66 (mmHg) O2 Sat by Pulse 97 Oximetry Oxygen Devices in Use Now: None Appearance: Elderly female lying in bed, NAD Eyes: No Scleral Icterus Ears/Nose/Mouth/Throat: Mucous Membranes Moist Respiratory: Symmetrical Chest Expansion and Respiratory Effort, Clear to Auscultation Cardiovascular: NL Sounds; No Murmurs; No JVD, RRR, No Edema Abdominal: NL Sounds; No Tenderness; No Distention Extremities: No Clubbing, Cyanosis Skin: No Rash or Ulcers, No Nodules or Sclerosis Neurological: Alert and Oriented x 3 Result Diagrams: 12/07/16 07:26 12/07/16 06:01 Additional Lab and Data: Lab Results 12/05/16 12/05/16 Range/Units 19:20 19:20 WBC 18.5 H (3.5-10.8) 10^3/ul RBC 4.15 (4.0-5.4) 10^6/ul Hgb 7.0 L (12.0-16.0) g/dl Hct 25 L (35-47) % MCV 59 L (80-97) fL MCH 17 L (27-31) pg MCHC 28 L (31-36) g/dl RDW 17 H (10.5-15) % Plt Count 633 H (150-450) 10^3/ul MPV 8 (7.4-10.4) um3 Neut % (Auto) 88.5 H (38-83) % Lymph % (Auto) 5.6 L (25-47) % [place] % (Auto) 4.8 (1-9) % Eos % (Auto) 0.6 (0-6) % Baso % (Auto) 0.5 (0-2) % Absolute Neuts (auto) 16.3 H (1.5-7.7) 10^3/ul Absolute Lymphs (auto) 1.0 (1.0-4.8) 10^3/ul Absolute Monos (auto) 0.9 H (0-0.8) 10^3/ul Absolute Eos (auto) 0.1 (0-0.6) 10^3/ul Absolute Basos (auto) 0.1 (0-0.2) 10^3/ul Absolute Nucleated RBC 0 10^3/ul Nucleated RBC % 0 Sodium 134 (133-145) mmol/L Potassium Pending Chloride 102 (101-111) mmol/L Carbon Dioxide 22 (22-32) mmol/L Anion Gap Pending BUN 16 (6-24) mg/dL Creatinine 0.80 (0.51-0.95) mg/dL Est GFR ( Amer) 88.5 (>60) Est GFR (Non-Af Amer) 68.8 (>60) BUN/Creatinine Ratio 20.0 (8-20) Glucose 125 H (70-100) mg/dL Calcium 9.6 (8.6-10.3) mg/dL Total Bilirubin 0.40 (0.2-1.0) mg/dL AST Pending ALT 10 (7-52) U/L Alkaline Phosphatase 102 (34-104) U/L Troponin I 0.01 (<0.04) ng/mL C-Reactive Protein 91.29 H (< 5.00) mg/L Total Protein 7.2 (6.4-8.9) g/dL Albumin 3.7 (3.2-5.2) g/dL Globulin 3.5 (2-4) g/dL Albumin/Globulin Ratio 1.1 (1-3) Amylase 121 H (29-103) U/L Lipase 475 H (11.0-82.0) U/L Assess/Plan/Problems-Billing Ms Rubin is an 80 yo F who has a h/o osteoporosis, seizure disorder, HTN, hypothyroidism and mild dementia who presented to the ER with c/o abdominal pain and was found to be markedly anemic with possible large gastric ulceration vs perforation. - Patient Problems (1) Gastric ulcer due to nonsteroidal anti-inflammatory drug (NSAID) Current Visit: Yes Status: Acute Code(s): T39.391A - POISONING BY OTH NONSTEROID ANTI-INFLAM DRUGS, ACC, INIT; K25.9 - GASTRIC ULCER, UNSP ACUTE OR CHRONIC, W/O HEMOR OR PERF SNOMED Code(s): 959076432 Comment: Likely the patient developed an ulcer from aleve and fosamax use. Continue protonix drip. GI consult this morning. The patient is very stable and looks good. Will hold off on starting a diet at least until the patient is seen by GI. H/H improved after the transfusions yesterday AM and now H/H is stable. Continue to follow. The patient also had a marked leukocytosis on admission which has resolved. Continue zosyn for now. (2) Iron deficiency anemia Current Visit: Yes Status: Acute Code(s): D50.9 - IRON DEFICIENCY ANEMIA, UNSPECIFIED SNOMED Code(s): 94230056 Comment: The patient is markedly iron deficient. Likely slow losses from her gastric ulcer. Will give venofer daily x3-5 days. (3) Seizure disorder Current Visit: Yes Status: Acute Code(s): G40.909 - EPILEPSY, UNSP, NOT INTRACTABLE, WITHOUT STATUS EPILEPTICUS SNOMED Code(s): 787308715 Comment: Continue IV keppra while NPO. (4) HTN (hypertension) Current Visit: Yes Status: Chronic Code(s): I10 - ESSENTIAL (PRIMARY) HYPERTENSION SNOMED Code(s): 10938458 Comment: BP is moderately elevated off her usual home medications. For now will continue to monitor. (5) Dementia Current Visit: Yes Status: Chronic Code(s): F03.90 - UNSPECIFIED DEMENTIA WITHOUT BEHAVIORAL DISTURBANCE SNOMED Code(s): 28986517 Comment: Namenda and aricept are on hold while NPO. (6) Hypothyroid Current Visit: Yes Status: Chronic Code(s): E03.9 - HYPOTHYROIDISM, UNSPECIFIED SNOMED Code(s): 63059576 Comment: IV synthroid. (7) DVT prophylaxis Current Visit: Yes Status: Acute Code(s): VIZ8463 - SNOMED Code(s): 798966816 Comment: ambulation/SCDs (8) Full code status Current Visit: Yes Status: Acute Code(s): Z78.9 - OTHER SPECIFIED HEALTH STATUS SNOMED Code(s): 409825191
[2016-12-07 09:21] LABS: Add Path Review? YES
[2016-12-07 09:23] LABS: Hypochromasia 1+; Polychromasia 1+; Tear Drop Cells 1+
[2016-12-07 09:24] LABS: Microcytosis 1+
[2016-12-07 09:25] LABS: Macrocytosis 1+
[2016-12-07] MEDS: Iron Sucrose* 200 MG in NS 0.9% 250 ML* 250 ML IVPB SCH (10:12)
--- NOTE | 2016-12-07 10:59 | PN ---
Progress Note - Progress Note SOAP: Subjective: Without complaint today No abdominal pain and she wants to eat Objective: Temp Pulse Resp BP Pulse Ox 97.6 F 82 16 166/66 97 12/07/16 07:10 12/07/16 07:10 12/07/16 07:57 12/07/16 07:10 12/07/16 07:10 Intake & Output 12/05/16 12/06/16 12/07/16 12/08/16 06:59 06:59 06:59 06:59 Intake Total 1200 4394 105 Output Total 450 1925 150 Balance 750 2469 -45 Weight 132 lb 131 lb 1.6 oz Intake: IV Fluids 1100 3195 105 ABX - ZOSYN 149 105 NS (0.9%) 2704 Protonix 342 IVPB 100 475 ABX - ZOSYN 197 Keppra 106 NS (0.9%) 25 Protonix 147 Oral 0 0 Packed Cells 724 Output: Urine 450 1925 150 Other: Estimated Void Small Date of Last Bowel 12/07/16 Movement # Bowel Movements 1 Estimated Stool Amount Large Small PEX: Comfortable Abd is soft and non-distended. No tenderness and normal bowel sounds Laboratory Last Values WBC 8.5 10^3/ul (3.5-10.8) 12/07/16 07:26 RBC 4.45 10^6/ul (4.0-5.4) 12/07/16 07:26 RBC (Retic) 4.15 10^6/ul (4.6-6.2) L 12/05/16 19:20 Hgb 8.9 g/dl (12.0-16.0) L 12/07/16 07:26 Hct 30 % (35-47) L 12/07/16 07:26 HCT (Retic) 25 % (35-47) L 12/05/16 19:20 MCV 68 fL (80-97) L 12/07/16 07:26 MCH 20 pg (27-31) L 12/07/16 07:26 MCHC 30 g/dl (31-36) L 12/07/16 07:26 RDW 25 % (10.5-15) H 12/07/16 07:26 Plt Count 425 10^3/ul (150-450) 12/07/16 07:26 MPV 8 um3 (7.4-10.4) 12/07/16 07:26 Neut % (Auto) 76.4 % (38-83) 12/07/16 07:26 Lymph % (Auto) 13.7 % (25-47) L 12/07/16 07:26 [place] % (Auto) 5.9 % (1-9) 12/07/16 07:26 Eos % (Auto) 3.0 % (0-6) 12/07/16 07:26 Baso % (Auto) 1.0 % (0-2) 12/07/16 07:26 Absolute Neuts (auto) 6.5 10^3/ul (1.5-7.7) 12/07/16 07:26 Absolute Lymphs (auto) 1.2 10^3/ul (1.0-4.8) 12/07/16 07:26 Absolute Monos (auto) 0.5 10^3/ul (0-0.8) 12/07/16 07:26 Absolute Eos (auto) 0.3 10^3/ul (0-0.6) 12/07/16 07:26 Absolute Basos (auto) 0.1 10^3/ul (0-0.2) 12/07/16 07:26 Absolute Nucleated RBC 0 10^3/ul 12/07/16 07:26 Nucleated RBC % 0 12/07/16 07:26 Normal RBC Morphology Not Reportable 12/07/16 07:26 Polychromasia 1+ 12/07/16 07:26 Hypochromasia 1+ 12/07/16 07:26 Microcytosis 1+ 12/07/16 07:26 Macrocytosis 1+ 12/07/16 07:26 Tear Drop Cells 1+ 12/07/16 07:26 Elliptocytes 1+ 12/07/16 07:26 Acanthocytes (Spur) 1+ 12/07/16 07:26 Retic Count, Calc 1.7 % (0.5-1.5) H 12/05/16 19:20 Corrected Retic Count 0.9 % (0.5-1.5) 12/05/16 19:20 Retic Shift Factor 2.0 12/05/16 19:20 Retic Production Index 0.50 12/05/16 19:20 Immature Retic Fraction 0.41 12/05/16 19:20 Mean Retic Volume 80.0 12/05/16 19:20 Sodium 138 mmol/L (133-145) 12/07/16 06:01 Potassium 3.5 mmol/L (3.5-5.0) 12/07/16 06:01 Chloride 111 mmol/L (101-111) 12/07/16 06:01 Carbon Dioxide 17 mmol/L (22-32) L 12/07/16 06:01 Anion Gap 10 mmol/L (2-11) 12/07/16 06:01 BUN 7 mg/dL (6-24) 12/07/16 06:01 Creatinine 0.61 mg/dL (0.51-0.95) 12/07/16 06:01 Est GFR ( Amer) 121.1 (>60) 12/07/16 06:01 Est GFR (Non-Af Amer) 94.1 (>60) 12/07/16 06:01 BUN/Creatinine Ratio 11.5 (8-20) 12/07/16 06:01 Glucose 68 mg/dL (70-100) L 12/07/16 06:01 Lactic Acid 0.6 mmol/L (0.5-2.0) 12/06/16 03:55 Calcium 7.6 mg/dL (8.6-10.3) L 12/07/16 06:01 Iron 12 ug/dL (50-212) L 12/05/16 19:20 TIBC 542 mcg/dL (250-450) H 12/05/16 19:20 % Saturation 2 % (15-55) L 12/05/16 19:20 Unsat Iron Binding 530 ug/dL 12/05/16 19:20 Ferritin 11.3 ng/mL (11-307) 12/05/16 19:20 Total Bilirubin 0.40 mg/dL (0.2-1.0) 12/05/16 19:20 AST 18 U/L (13-39) 12/05/16 19:20 ALT 10 U/L (7-52) 12/05/16 19:20 Alkaline Phosphatase 102 U/L (34-104) 12/05/16 19:20 Lactate Dehydrogenase 387 U/L (140-271) H 12/05/16 19:20 Troponin I 0.01 ng/mL (<0.04) 12/05/16 19:20 C-Reactive Protein 91.29 mg/L (< 5.00) H 12/05/16 19:20 Total Protein 7.2 g/dL (6.4-8.9) 12/05/16 19:20 Albumin 3.7 g/dL (3.2-5.2) 12/05/16 19:20 Globulin 3.5 g/dL (2-4) 12/05/16 19:20 Albumin/Globulin Ratio 1.1 (1-3) 12/05/16 19:20 Amylase 121 U/L (29-103) H 12/05/16 19:20 Lipase 111 U/L (11.0-82.0) H 12/06/16 03:55 Vitamin B12 > 1450 pg/mL (180-914) H 12/05/16 19:20 Folate > 20.00 ng/mL (>3.99) 12/05/16 19:20 Urine Color Straw 12/06/16 00:10 Urine Appearance Clear 12/06/16 00:10 Urine pH 6.0 (5-9) 12/06/16 00:10 Ur Specific [place] 1.006 (1.010-1.030) L 12/06/16 00:10 Urine Protein Negative (Negative) 12/06/16 00:10 Urine Ketones Negative (Negative) 12/06/16 00:10 Urine Blood Negative (Negative) 12/06/16 00:10 Urine Nitrate Negative (Negative) 12/06/16 00:10 Urine Bilirubin Negative (Negative) 12/06/16 00:10 Urine Urobilinogen Negative (Negative) 12/06/16 00:10 Ur Leukocyte Esterase Negative (Negative) 12/06/16 00:10 Urine Glucose Negative (Negative) 12/06/16 00:10 Blood Type A Negative 12/05/16 19:20 Antibody Screen Negative 12/05/16 19:20 Crossmatch See Detail 12/05/16 19:20 Assessment: Chronic Gastric ulcer-benign v malignant Anemia-no signs of acute bleeding, H/H appears stable. Plan: No surgical intervention at present Await GI consult-
[2016-12-07] MEDS: hydrALAZINE IV* 20 MG/ML VIAL IV PRN (20:30)
--- NOTE | 2016-12-07 20:51 | CONS ---
CONSULTATION REPORT: DATE OF CONSULT: 12/07/16 REQUESTING PHYSICIAN: Shelley Danielle DO INDICATION: Gastric perforation. NARRATIVE: Mrs. Rubin is a very pleasant 80-year-old female with a history of seizure disorder, hypertension, hyperlipidemia, CVA, TIA, mild dementia, hypothyroid, and osteoporosis who states that she was in her normal state of health until Thursday afternoon. She and her both agree that was feeling great on Thursday morning and then Thursday afternoon, she developed the acute onset of severe abdominal pain. She states that her abdomen became very bloated and distended. The pain became so severe she eventually presented to the emergency room. In the ED, a CT was obtained and it revealed a likely gastric perforation. It showed peripancreatic inflammation at the level of the pancreatic tail, which appears secondary to a posterior gastric body perforation with extravasation of enteric contrast to the lesser sac. The gastric perforation is likely approximately 0.8 cm in diameter. The patient was seen by surgery and at that point, she was starting to feel better since she was feeling better and her abdominal exam was fairly unremarkable, the surgeon elected watchful waiting. The patient was seen by Surgery on Thursday and was continuing to improve and had pretty much become pain-free at that point. I was called about the patient yesterday afternoon around 5 p.m. for a consultation. The patient was stable and feeling well. This morning, she is doing well. She denies any abdominal pain at all. She states that her abdomen is slightly distended, but completely nontender. She denies any nausea or vomiting. The patient does have chronic hip pain and takes Aleve on a daily basis for that. She also takes an enteric-coated aspirin every day. She is also on bisphosphonates. No nausea, no vomiting, and no blood in the stool. She has never had any gastrointestinal bleeding in the past. No history of peptic ulcer disease in the family. PAST MEDICAL HISTORY: Please see the HPI. PAST SURGICAL HISTORY: Includes: 1. Thyroidectomy. 2. Hysterectomy. 3. Hip replacement. 4. Shoulder replacement. OUTPATIENT MEDICATIONS: Include: 1. Tenormin. 2. Lipitor. 3. Aricept. 4. Avapro. 5. Synthroid. 6. Namenda. 7. Ecotrin. 8. Norvasc. 9. Keppra. ALLERGIES: No known drug allergies. FAMILY HISTORY: Negative for any GI malignancies or disease. SOCIAL HISTORY: She denies any alcohol. No tobacco. No IV drug use. REVIEW OF SYSTEMS: Twelve systems were reviewed with the patient and all were negative other that mentioned in the HPI. PHYSICAL EXAM: General: A well-appearing, elderly female, appears her stated age, lying flat in bed, alert and oriented, pleasant and fluent. Vital signs: Temperature is 97.6, blood pressure 166/66, pulse is 82, and respiratory rate of 17. HEENT: Mucous membranes are moist without lesions, ulcers, or exudate. Head is normocephalic, atraumatic. Neck: Supple. Trachea is midline. Lungs : Clear to auscultation. No wheezes, rales, or rhonchi. Heart: Regular rate and rhythm. No murmurs, rubs, or gallops. Abdomen: Softly distended. Positive bowel sounds. No rebound. No guarding. No tenderness at all, especially in the epigastrium. No masses were felt. No hepatosplenomegaly. Skin: Warm and dry DIAGNOSTIC STUDIES/LAB DATA: Of note, her white count is 8.5; hemoglobin is 8.9 and previously was 8.9, 6.1, and 7; she has received 2 units of packed red blood cells; and platelets of 425. BUN of 7 and creatinine is 0.61. CT - please see the HPI. ASSESSMENT AND PLAN: This is a very pleasant 80-year-old female who appears to have had a gastric perforation that is now contained, likely secondary to nonsteroidal use. She is doing very well at this time. Surgeons do not feel that she is a surgical candidate at this time. At some point, she will need an upper endoscopy to evaluate for the ulcer and likely biopsies to confirm that there is no malignant component to it. I do not want to perform an endoscopy right now as I want to allow the perforation to heal a little bit better given the fact that during the endoscopy, I will need to insufflate air, which could aggravate the walled-off perforation. I will give her some clears today, see how she does with that, and then potentially tomorrow or in the next few days, perform an upper endoscopy for further evaluation. The patient and her family were understanding and agreeable. CC: Dr. Matthews* [id number]/[facility] #: [id number] [facility] HOSPITALMartha
[2016-12-08] MEDS: levETIRAcetam 500 MG IVPREMIX* 500 MG/100 ML BAG IV SCH ×2 (01:06→15:06)
[2016-12-08] MEDS: Piperac/Tazob 3.375 gm in NS* 3.375 GM/100 ML BAG IVPB SCH ×2 (04:55→15:06)
[2016-12-08] MEDS: Levothyroxine INJ* 100 MCG/5 ML VIAL IV SCH (05:52)
[2016-12-08 07:04] LABS: Hematocrit 31 % (35-47); Hemoglobin 9.4 g/dl (12.0-16.0); Mean Corpuscular HGB Conc 31 g/dl (31-36); Mean Corpuscular Hemoglobin 20 pg (27-31); Mean Corpuscular Volume 66 fL (80-97); Mean Platelet Volume 7 um3 (7.4-10.4); Red Blood Count 4.61 10^6/ul (4.0-5.4); Red Cell Distribution Width 25 % (10.5-15); White Blood Count 9.1 10^3/ul (3.5-10.8)
[2016-12-08 07:06] LABS: Comments Flag Yes
[2016-12-08 07:19] LABS: BUN/Creatinine Ratio 5.3 (8-20); Calcium 8.2 mg/dL (8.6-10.3); EGFR African American 130.9 (>60); EGFR Non-African American 101.8 (>60); Potassium 2.9 mmol/L (3.5-5.0)
[2016-12-08] MEDS ORDERED: NS 0.9% 250 ML* 250 ML ONE (08:32)
[2016-12-08] MEDS: Iron Sucrose* 200 MG in NS 0.9% 250 ML* 250 ML IVPB SCH (08:47)
--- NOTE | 2016-12-08 09:59 | RAD ---
HISTORY: Perforated gastric ulcer COMPARISONS: CT dated December 05, 2016 TECHNIQUE: A single contrast fluoroscopic study was performed of the esophagus and upper GI tract. Water-soluble liquid contrast was administered under fluoroscopic observation. Multiple digital spot images were obtained Total fluoroscopy time is 1.4 minutes. FINDINGS: ESOPHAGUS: The esophagus is normal in contour, course, and caliber. There is no stricture or web. Contrast passes easily through the gastroesophageal junction into the stomach. There is normal esophageal motility. STOMACH: There is an approximately 3 cm exoluminal ulceration of the proximal body of the stomach along the greater curvature. No reflux was elicited on the current examination. No extravasation of contrast is noted. DUODENUM: The pyloric bulb is grossly normal. The duodenal mucosal pattern is normal. The duodenal sweep is normal. IMPRESSION: AGAIN NOTED IS AN ULCERATION ALONG THE GREATER CURVATURE OF STOMACH CORRESPONDING TO THE FINDINGS NOTED ON CT OF DECEMBER 05, 2016. THERE IS NO APPRECIABLE EXTRAVASATION. THE DIFFERENTIAL DOES INCLUDE ULCERATIVE NEOPLASM, THOUGH THE IMAGING APPEARANCE IS NONSPECIFIC. CPT II Codes: 6045F
[2016-12-08] MEDS ORDERED: Potassium Chloride LIQUID* 20 MEQ PACKET PO ONE (10:59)
[2016-12-08] MEDS: Pantoprazole IV* 80 MG in NS 0.9% 250 ML* 250 ML IVPB SCH ×2 (12:11→21:15)
[2016-12-08] MEDS: KCL 20 MEQ/100 ML IVPREMIX* 20 MEQ/100 ML BAG IV SCH ×2 (15:05→15:06)
--- NOTE | 2016-12-08 15:13 | PN ---
Subjective Date of Service: 12/08/16 Interval History: Pt is feeling ok except that she has been having very liquid diarrhea today. She states it started after the iron sucrose started this AM. She denies any pain. No SOB. Objective Active Medications: Hydralazine HCl (Apresoline Iv*) 10 mg IV Q4H PRN PRN Reason: Systolic >170 Last Admin: 12/07/16 20:30 Dose: 10 mg Hydromorphone HCl (Dilaudid Iv*) 0.5 mg IV Q2H PRN PRN Reason: PAIN Last Admin: 12/06/16 04:10 Dose: 0.5 mg Pantoprazole Sodium 80 mg/ (Sodium Chloride) 250 mls @ 25 mls/hr IVPB Q10H [facility] Last Admin: 12/08/16 12:11 Dose: 25 mls/hr Levetiracetam (Keppra Tab*) 500 mg PO BID [facility] Levothyroxine Sodium (Synthroid Tab*) 50 mcg PO DAILY@0600 [facility] Ondansetron HCl (Zofran Inj*) 4 mg IV Q6H PRN PRN Reason: NAUSEA Last Admin: 12/06/16 01:13 Dose: 4 mg Potassium Chloride (Klor-Con Liquid*) 40 meq PO Q4H [facility] Stop: 12/08/16 19:01 Vital Signs 12/07/16 12/07/16 12/07/16 15:39 15:54 20:00 Temperature 97.9 F Pulse Rate 74 74 Respiratory 16 18 Rate Blood Pressure 173/74 152/64 (mmHg) O2 Sat by Pulse 97 Oximetry 12/07/16 12/07/16 12/08/16 20:25 23:51 00:57 Temperature 97.9 F 98.0 F Pulse Rate 77 87 Respiratory 16 16 Rate Blood Pressure 187/72 143/42 (mmHg) O2 Sat by Pulse 96 96 Oximetry 12/08/16 12/08/16 12/08/16 04:37 07:32 07:58 Temperature 98.0 F 98.2 F Pulse Rate 90 91 Respiratory 16 20 18 Rate Blood Pressure 170/65 168/70 (mmHg) O2 Sat by Pulse 97 96 Oximetry 12/08/16 11:12 Temperature 97.8 F Pulse Rate 88 Respiratory 17 Rate Blood Pressure 157/73 (mmHg) O2 Sat by Pulse 99 Oximetry Oxygen Devices in Use Now: None Appearance: Elderly female sitting in a chair, NAD Eyes: No Scleral Icterus Ears/Nose/Mouth/Throat: Mucous Membranes Moist Respiratory: Symmetrical Chest Expansion and Respiratory Effort, Clear to Auscultation Cardiovascular: NL Sounds; No Murmurs; No JVD, RRR, No Edema Abdominal: NL Sounds; No Tenderness; No Distention Extremities: No Clubbing, Cyanosis Skin: No Rash or Ulcers, No Nodules or Sclerosis Neurological: Alert and Oriented x 3 Result Diagrams: 12/08/16 06:38 12/08/16 06:39 Additional Lab and Data: Lab Results 12/05/16 12/05/16 Range/Units 19:20 19:20 WBC 18.5 H (3.5-10.8) 10^3/ul RBC 4.15 (4.0-5.4) 10^6/ul Hgb 7.0 L (12.0-16.0) g/dl Hct 25 L (35-47) % MCV 59 L (80-97) fL MCH 17 L (27-31) pg MCHC 28 L (31-36) g/dl RDW 17 H (10.5-15) % Plt Count 633 H (150-450) 10^3/ul MPV 8 (7.4-10.4) um3 Neut % (Auto) 88.5 H (38-83) % Lymph % (Auto) 5.6 L (25-47) % [place] % (Auto) 4.8 (1-9) % Eos % (Auto) 0.6 (0-6) % Baso % (Auto) 0.5 (0-2) % Absolute Neuts (auto) 16.3 H (1.5-7.7) 10^3/ul Absolute Lymphs (auto) 1.0 (1.0-4.8) 10^3/ul Absolute Monos (auto) 0.9 H (0-0.8) 10^3/ul Absolute Eos (auto) 0.1 (0-0.6) 10^3/ul Absolute Basos (auto) 0.1 (0-0.2) 10^3/ul Absolute Nucleated RBC 0 10^3/ul Nucleated RBC % 0 Sodium 134 (133-145) mmol/L Potassium Pending Chloride 102 (101-111) mmol/L Carbon Dioxide 22 (22-32) mmol/L Anion Gap Pending BUN 16 (6-24) mg/dL Creatinine 0.80 (0.51-0.95) mg/dL Est GFR ( Amer) 88.5 (>60) Est GFR (Non-Af Amer) 68.8 (>60) BUN/Creatinine Ratio 20.0 (8-20) Glucose 125 H (70-100) mg/dL Calcium 9.6 (8.6-10.3) mg/dL Total Bilirubin 0.40 (0.2-1.0) mg/dL AST Pending ALT 10 (7-52) U/L Alkaline Phosphatase 102 (34-104) U/L Troponin I 0.01 (<0.04) ng/mL C-Reactive Protein 91.29 H (< 5.00) mg/L Total Protein 7.2 (6.4-8.9) g/dL Albumin 3.7 (3.2-5.2) g/dL Globulin 3.5 (2-4) g/dL Albumin/Globulin Ratio 1.1 (1-3) Amylase 121 H (29-103) U/L Lipase 475 H (11.0-82.0) U/L Assess/Plan/Problems-Billing Ms Rubin is an 80 yo F who has a h/o osteoporosis, seizure disorder, HTN, hypothyroidism and mild dementia who presented to the ER with c/o abdominal pain and was found to be markedly anemic with possible large gastric ulceration vs perforation. - Patient Problems (1) Diarrhea Current Visit: Yes Status: Acute Code(s): R19.7 - DIARRHEA, UNSPECIFIED SNOMED Code(s): 86826374 Comment: ? secondary to iron sucrose vs Abx vs Abx associated colitis. Will monitor frequency of diarrhea through the rest of today. If diarrhea persists will send for Cdiff. (2) Gastric ulcer due to nonsteroidal anti-inflammatory drug (NSAID) Current Visit: Yes Status: Acute Code(s): T39.391A - POISONING BY OTH NONSTEROID ANTI-INFLAM DRUGS, ACC, INIT; K25.9 - GASTRIC ULCER, UNSP ACUTE OR CHRONIC, W/O HEMOR OR PERF SNOMED Code(s): 698999279 Comment: Likely the patient developed an ulcer from aleve and fosamax use. Continue protonix drip. Upper GI series shows the ulcer but no leakage of contrast out of the stomach. Plan is to advance her diet. Monitor for symptoms. Dr. Bower would like to do an EGD next week. Stop zosyn. (3) Iron deficiency anemia Current Visit: Yes Status: Acute Code(s): D50.9 - IRON DEFICIENCY ANEMIA, UNSPECIFIED SNOMED Code(s): 36607130 Comment: The patient is markedly iron deficient. Likely slow losses from her gastric ulcer. The patient is now c/o diarrhea. This is a side effect from iron sucrose. She has had 2 doses. Hold on further doses for now. (4) Seizure disorder Current Visit: Yes Status: Acute Code(s): G40.909 - EPILEPSY, UNSP, NOT INTRACTABLE, WITHOUT STATUS EPILEPTICUS SNOMED Code(s): 508450356 Comment: Resume oral keppra 500mg BID. (5) HTN (hypertension) Current Visit: Yes Status: Chronic Code(s): I10 - ESSENTIAL (PRIMARY) HYPERTENSION SNOMED Code(s): 77303730 Comment: Resume atenolol today and monitor the BP. (6) Dementia Current Visit: Yes Status: Chronic Code(s): F03.90 - UNSPECIFIED DEMENTIA WITHOUT BEHAVIORAL DISTURBANCE SNOMED Code(s): 28550311 Comment: Resume namenda and aricept. (7) Hypothyroid Current Visit: Yes Status: Chronic Code(s): E03.9 - HYPOTHYROIDISM, UNSPECIFIED SNOMED Code(s): 29241241 Comment: Change back to oral synthroid. (8) DVT prophylaxis Current Visit: Yes Status: Acute Code(s): IVL1331 - SNOMED Code(s): 194113347 Comment: ambulation/SCDs (9) Full code status Current Visit: Yes Status: Acute Code(s): Z78.9 - OTHER SPECIFIED HEALTH STATUS SNOMED Code(s): 917837486
[2016-12-08] MEDS: Potassium Chloride LIQUID* 20 MEQ PACKET PO SCH ×2 (15:57→19:04)
[2016-12-08] MEDS: hydrALAZINE IV* 20 MG/ML VIAL IV PRN (16:43)
--- NOTE | 2016-12-08 17:44 | PN ---
Progress Note - Progress Note SOAP: Subjective: pt seen and examined. C/o increase UO, loose BMs. No abdo pain, minimal appetite. She tolerated soup earlier. Objective: Af vss abdo: soft/ mild distension, NT, tympanic UGI: no extav, 3cm posterior ulcer. Assessment: Contained posterior gastric ulcer. Plan: abx PO diet EGD later on according to Dr Ramirez. Pt may require exploration if dx of cancer, or if she worsens. We will follow along
[2016-12-08] MEDS: Memantine TAB* 10 MG PO SCH (17:53)
[2016-12-08] MEDS: Donepezil TAB* 5 MG PO SCH (17:53)
[2016-12-08] MEDS: Atenolol TAB* 25 MG PO SCH (21:13)
[2016-12-08] MEDS: levETIRAcetam TAB* 500 MG PO SCH (21:13)
[2016-12-09] MEDS: Pantoprazole IV* 80 MG in NS 0.9% 250 ML* 250 ML IVPB SCH ×5 (01:25→22:09)
[2016-12-09] MEDS: Levothyroxine TAB* 25 MCG TAB PO SCH (06:28)
[2016-12-09 08:14] LABS: Hematocrit 29 % (35-47); Mean Corpuscular HGB Conc 31 g/dl (31-36); Mean Corpuscular Hemoglobin 20 pg (27-31); Mean Corpuscular Volume 66 fL (80-97); Mean Platelet Volume 7 um3 (7.4-10.4); Red Blood Count 4.43 10^6/ul (4.0-5.4); Red Cell Distribution Width 25 % (10.5-15); White Blood Count 8.9 10^3/ul (3.5-10.8)
[2016-12-09 08:19] LABS: Comments Flag Yes
[2016-12-09 08:30] LABS: BUN/Creatinine Ratio 7.9 (8-20); Calcium 8.5 mg/dL (8.6-10.3); EGFR African American 116.6 (>60); EGFR Non-African American 90.7 (>60); Potassium 3.7 mmol/L (3.5-5.0)
[2016-12-09] MEDS: Atenolol TAB* 25 MG PO SCH ×2 (08:37→20:43)
[2016-12-09] MEDS: levETIRAcetam TAB* 500 MG PO SCH ×2 (08:37→20:43)
--- NOTE | 2016-12-09 10:58 | PN ---
Subjective Date of Service: 12/09/16 Interval History: Pt is feeling well. She has no abdominal pain. NO SOB. She has had 2 BMs this AM but she describes them as yellow soft and much better than yesterday. Objective Active Medications: Atenolol (Tenormin Tab*) 25 mg PO BID [facility] Last Admin: 12/09/16 08:37 Dose: 25 mg Donepezil HCl (Aricept Tab*) 10 mg PO QPM [facility] Last Admin: 12/08/16 17:53 Dose: 10 mg Hydralazine HCl (Apresoline Iv*) 10 mg IV Q4H PRN PRN Reason: Systolic >170 Last Admin: 12/08/16 16:43 Dose: 10 mg Hydromorphone HCl (Dilaudid Iv*) 0.5 mg IV Q2H PRN PRN Reason: PAIN Last Admin: 12/06/16 04:10 Dose: 0.5 mg Pantoprazole Sodium 80 mg/ (Sodium Chloride) 250 mls @ 25 mls/hr IVPB Q10H [facility] Last Admin: 12/09/16 06:31 Dose: Not Given Levetiracetam (Keppra Tab*) 500 mg PO BID [facility] Last Admin: 12/09/16 08:37 Dose: 500 mg Levothyroxine Sodium (Synthroid Tab*) 50 mcg PO DAILY@0600 [facility] Last Admin: 12/09/16 06:28 Dose: 50 mcg Memantine (Namenda Tab*) 10 mg PO QPM [facility] Last Admin: 12/08/16 17:53 Dose: 10 mg Ondansetron HCl (Zofran Inj*) 4 mg IV Q6H PRN PRN Reason: NAUSEA Last Admin: 12/06/16 01:13 Dose: 4 mg Vital Signs 12/08/16 12/08/16 12/08/16 11:12 16:05 19:47 Temperature 97.8 F 97.6 F 98.4 F Pulse Rate 88 105 110 Respiratory 17 20 20 Rate Blood Pressure 157/73 193/80 178/74 (mmHg) O2 Sat by Pulse 99 100 97 Oximetry 12/08/16 12/09/16 12/09/16 21:03 00:12 03:25 Temperature 97.8 F 98.3 F Pulse Rate 70 70 Respiratory 20 16 18 Rate Blood Pressure 146/52 177/69 (mmHg) O2 Sat by Pulse 97 97 Oximetry 12/09/16 12/09/16 08:17 08:40 Temperature 98.2 F Pulse Rate 74 Respiratory 16 16 Rate Blood Pressure 170/66 (mmHg) O2 Sat by Pulse 96 Oximetry Oxygen Devices in Use Now: None Appearance: Elderly female sitting in a chair, NAD Eyes: No Scleral Icterus Ears/Nose/Mouth/Throat: Mucous Membranes Moist Respiratory: Symmetrical Chest Expansion and Respiratory Effort, Clear to Auscultation Cardiovascular: NL Sounds; No Murmurs; No JVD, RRR, No Edema Abdominal: NL Sounds; No Tenderness; No Distention Extremities: No Clubbing, Cyanosis Skin: No Rash or Ulcers, No Nodules or Sclerosis Neurological: Alert and Oriented x 3 Result Diagrams: 12/09/16 07:39 12/09/16 07:39 Additional Lab and Data: Lab Results 12/05/16 12/05/16 Range/Units 19:20 19:20 WBC 18.5 H (3.5-10.8) 10^3/ul RBC 4.15 (4.0-5.4) 10^6/ul Hgb 7.0 L (12.0-16.0) g/dl Hct 25 L (35-47) % MCV 59 L (80-97) fL MCH 17 L (27-31) pg MCHC 28 L (31-36) g/dl RDW 17 H (10.5-15) % Plt Count 633 H (150-450) 10^3/ul MPV 8 (7.4-10.4) um3 Neut % (Auto) 88.5 H (38-83) % Lymph % (Auto) 5.6 L (25-47) % [place] % (Auto) 4.8 (1-9) % Eos % (Auto) 0.6 (0-6) % Baso % (Auto) 0.5 (0-2) % Absolute Neuts (auto) 16.3 H (1.5-7.7) 10^3/ul Absolute Lymphs (auto) 1.0 (1.0-4.8) 10^3/ul Absolute Monos (auto) 0.9 H (0-0.8) 10^3/ul Absolute Eos (auto) 0.1 (0-0.6) 10^3/ul Absolute Basos (auto) 0.1 (0-0.2) 10^3/ul Absolute Nucleated RBC 0 10^3/ul Nucleated RBC % 0 Sodium 134 (133-145) mmol/L Potassium Pending Chloride 102 (101-111) mmol/L Carbon Dioxide 22 (22-32) mmol/L Anion Gap Pending BUN 16 (6-24) mg/dL Creatinine 0.80 (0.51-0.95) mg/dL Est GFR ( Amer) 88.5 (>60) Est GFR (Non-Af Amer) 68.8 (>60) BUN/Creatinine Ratio 20.0 (8-20) Glucose 125 H (70-100) mg/dL Calcium 9.6 (8.6-10.3) mg/dL Total Bilirubin 0.40 (0.2-1.0) mg/dL AST Pending ALT 10 (7-52) U/L Alkaline Phosphatase 102 (34-104) U/L Troponin I 0.01 (<0.04) ng/mL C-Reactive Protein 91.29 H (< 5.00) mg/L Total Protein 7.2 (6.4-8.9) g/dL Albumin 3.7 (3.2-5.2) g/dL Globulin 3.5 (2-4) g/dL Albumin/Globulin Ratio 1.1 (1-3) Amylase 121 H (29-103) U/L Lipase 475 H (11.0-82.0) U/L Assess/Plan/Problems-Billing Ms Rubin is an 80 yo F who has a h/o osteoporosis, seizure disorder, HTN, hypothyroidism and mild dementia who presented to the ER with c/o abdominal pain and was found to be markedly anemic with possible large gastric ulceration vs perforation. - Patient Problems (1) Diarrhea Current Visit: Yes Status: Acute Code(s): R19.7 - DIARRHEA, UNSPECIFIED SNOMED Code(s): 69696129 Comment: Improving. Hold off on sending stool for Cdiff. Monitor today. (2) Gastric ulcer due to nonsteroidal anti-inflammatory drug (NSAID) Current Visit: Yes Status: Acute Code(s): T39.391A - POISONING BY OTH NONSTEROID ANTI-INFLAM DRUGS, ACC, INIT; K25.9 - GASTRIC ULCER, UNSP ACUTE OR CHRONIC, W/O HEMOR OR PERF SNOMED Code(s): 451690791 Comment: Likely the patient developed an ulcer from aleve and fosamax use. Continue protonix drip. Upper GI series shows the ulcer but no leakage of contrast out of the stomach. Pt is tolerating full liquids. Will continue fulls for now but likely advance to soft tonight or tomorrow. Plan for outpaient EGD next week. (3) Iron deficiency anemia Current Visit: Yes Status: Acute Code(s): D50.9 - IRON DEFICIENCY ANEMIA, UNSPECIFIED SNOMED Code(s): 96635927 Comment: The patient is markedly iron deficient. Likely slow losses from her gastric ulcer. The patient is now c/o diarrhea. Start ferrous sulfate on discharge. (4) Seizure disorder Current Visit: Yes Status: Acute Code(s): G40.909 - EPILEPSY, UNSP, NOT INTRACTABLE, WITHOUT STATUS EPILEPTICUS SNOMED Code(s): 852709516 Comment: Continue keppra 500mg BID. (5) HTN (hypertension) Current Visit: Yes Status: Chronic Code(s): I10 - ESSENTIAL (PRIMARY) HYPERTENSION SNOMED Code(s): 23146340 Comment: BP is still up. Resume ARB today. Continue to monitor. (6) Dementia Current Visit: Yes Status: Chronic Code(s): F03.90 - UNSPECIFIED DEMENTIA WITHOUT BEHAVIORAL DISTURBANCE SNOMED Code(s): 79844441 Comment: Resume namenda and aricept. (7) Hypothyroid Current Visit: Yes Status: Chronic Code(s): E03.9 - HYPOTHYROIDISM, UNSPECIFIED SNOMED Code(s): 33056859 Comment: Change back to oral synthroid. (8) DVT prophylaxis Current Visit: Yes Status: Acute Code(s): JHS6641 - SNOMED Code(s): 864332717 Comment: ambulation/SCDs (9) Full code status Current Visit: Yes Status: Acute Code(s): Z78.9 - OTHER SPECIFIED HEALTH STATUS SNOMED Code(s): 493899170
[2016-12-09] MEDS: Losartan TAB* 25 MG PO SCH (11:30)
[2016-12-09] MEDS: Memantine TAB* 10 MG PO SCH (18:01)
[2016-12-09] MEDS: Donepezil TAB* 5 MG PO SCH (18:01)
[2016-12-10] MEDS: Pantoprazole IV* 80 MG in NS 0.9% 250 ML* 250 ML IVPB SCH ×2 (02:31→09:42)
[2016-12-10] MEDS: Levothyroxine TAB* 25 MCG TAB PO SCH (05:36)
[2016-12-10] MEDS ORDERED: Pantoprazole IV* 40 MG ONE (09:24)
[2016-12-10] MEDS: Losartan TAB* 25 MG PO SCH (09:48)
[2016-12-10] MEDS: Atenolol TAB* 25 MG PO SCH ×2 (09:48→20:21)
[2016-12-10] MEDS: levETIRAcetam TAB* 500 MG PO SCH ×2 (09:48→20:21)
--- NOTE | 2016-12-10 11:23 | PN ---
Subjective Date of Service: 12/10/16 Interval History: Pt is feeling well. No pain. No SOB. She states she has had 2 good BMs today. Objective Active Medications: Atenolol (Tenormin Tab*) 25 mg PO BID [facility] Last Admin: 12/10/16 09:48 Dose: 25 mg Donepezil HCl (Aricept Tab*) 10 mg PO QPM [facility] Last Admin: 12/09/16 18:01 Dose: 10 mg Hydralazine HCl (Apresoline Iv*) 10 mg IV Q4H PRN PRN Reason: Systolic >170 Last Admin: 12/08/16 16:43 Dose: 10 mg Hydromorphone HCl (Dilaudid Iv*) 0.5 mg IV Q2H PRN PRN Reason: PAIN Last Admin: 12/06/16 04:10 Dose: 0.5 mg Pantoprazole Sodium 80 mg/ (Sodium Chloride) 250 mls @ 25 mls/hr IVPB Q10H [facility] Last Admin: 12/10/16 09:42 Dose: 25 mls/hr Levetiracetam (Keppra Tab*) 500 mg PO BID [facility] Last Admin: 12/10/16 09:48 Dose: 500 mg Levothyroxine Sodium (Synthroid Tab*) 50 mcg PO DAILY@0600 [facility] Last Admin: 12/10/16 05:36 Dose: 50 mcg Losartan Potassium (Cozaar Tab*) 100 mg PO QAM [facility] Last Admin: 12/10/16 09:48 Dose: 100 mg Memantine (Namenda Tab*) 10 mg PO QPM [facility] Last Admin: 12/09/16 18:01 Dose: 10 mg Ondansetron HCl (Zofran Inj*) 4 mg IV Q6H PRN PRN Reason: NAUSEA Last Admin: 12/06/16 01:13 Dose: 4 mg Vital Signs 12/09/16 12/09/16 12/09/16 11:54 15:55 16:01 Temperature 97.9 F 97.9 F Pulse Rate 63 67 Respiratory 16 16 Rate Blood Pressure 164/75 155/68 (mmHg) O2 Sat by Pulse 100 99 Oximetry 12/09/16 12/09/16 12/09/16 19:30 20:00 23:40 Temperature 97.7 F 98.2 F Pulse Rate 68 65 Respiratory 20 16 16 Rate Blood Pressure 148/57 154/53 (mmHg) O2 Sat by Pulse 99 96 Oximetry 12/10/16 12/10/16 12/10/16 03:44 07:19 08:06 Temperature 98.3 F 98.5 F Pulse Rate 68 64 Respiratory 16 18 16 Rate Blood Pressure 180/52 167/65 (mmHg) O2 Sat by Pulse 95 96 Oximetry Oxygen Devices in Use Now: None Appearance: Elderly female sitting in a chair, NAD Eyes: No Scleral Icterus Ears/Nose/Mouth/Throat: Mucous Membranes Moist Respiratory: Symmetrical Chest Expansion and Respiratory Effort, Clear to Auscultation Cardiovascular: NL Sounds; No Murmurs; No JVD, RRR, No Edema Abdominal: NL Sounds; No Tenderness; No Distention Extremities: No Clubbing, Cyanosis Skin: No Rash or Ulcers, No Nodules or Sclerosis Neurological: Alert and Oriented x 3 Result Diagrams: 12/09/16 07:39 12/09/16 07:39 Additional Lab and Data: Lab Results 12/05/16 12/05/16 Range/Units 19:20 19:20 WBC 18.5 H (3.5-10.8) 10^3/ul RBC 4.15 (4.0-5.4) 10^6/ul Hgb 7.0 L (12.0-16.0) g/dl Hct 25 L (35-47) % MCV 59 L (80-97) fL MCH 17 L (27-31) pg MCHC 28 L (31-36) g/dl RDW 17 H (10.5-15) % Plt Count 633 H (150-450) 10^3/ul MPV 8 (7.4-10.4) um3 Neut % (Auto) 88.5 H (38-83) % Lymph % (Auto) 5.6 L (25-47) % Mcculloch % (Auto) 4.8 (1-9) % Eos % (Auto) 0.6 (0-6) % Baso % (Auto) 0.5 (0-2) % Absolute Neuts (auto) 16.3 H (1.5-7.7) 10^3/ul Absolute Lymphs (auto) 1.0 (1.0-4.8) 10^3/ul Absolute Monos (auto) 0.9 H (0-0.8) 10^3/ul Absolute Eos (auto) 0.1 (0-0.6) 10^3/ul Absolute Basos (auto) 0.1 (0-0.2) 10^3/ul Absolute Nucleated RBC 0 10^3/ul Nucleated RBC % 0 Sodium 134 (133-145) mmol/L Potassium Pending Chloride 102 (101-111) mmol/L Carbon Dioxide 22 (22-32) mmol/L Anion Gap Pending BUN 16 (6-24) mg/dL Creatinine 0.80 (0.51-0.95) mg/dL Est GFR ( Amer) 88.5 (>60) Est GFR (Non-Af Amer) 68.8 (>60) BUN/Creatinine Ratio 20.0 (8-20) Glucose 125 H (70-100) mg/dL Calcium 9.6 (8.6-10.3) mg/dL Total Bilirubin 0.40 (0.2-1.0) mg/dL AST Pending ALT 10 (7-52) U/L Alkaline Phosphatase 102 (34-104) U/L Troponin I 0.01 (<0.04) ng/mL C-Reactive Protein 91.29 H (< 5.00) mg/L Total Protein 7.2 (6.4-8.9) g/dL Albumin 3.7 (3.2-5.2) g/dL Globulin 3.5 (2-4) g/dL Albumin/Globulin Ratio 1.1 (1-3) Amylase 121 H (29-103) U/L Lipase 475 H (11.0-82.0) U/L Assess/Plan/Problems-Billing Ms Rubin is an 80 yo F who has a h/o osteoporosis, seizure disorder, HTN, hypothyroidism and mild dementia who presented to the ER with c/o abdominal pain and was found to be markedly anemic with possible large gastric ulceration vs perforation. - Patient Problems (1) Diarrhea Current Visit: Yes Status: Acute Code(s): R19.7 - DIARRHEA, UNSPECIFIED SNOMED Code(s): 38435279 Comment: Resolved. Likely secondary to iron sucrose vs side effect from zosyn. (2) Gastric ulcer due to nonsteroidal anti-inflammatory drug (NSAID) Current Visit: Yes Status: Acute Code(s): T39.391A - POISONING BY OTH NONSTEROID ANTI-INFLAM DRUGS, ACC, INIT; K25.9 - GASTRIC ULCER, UNSP ACUTE OR CHRONIC, W/O HEMOR OR PERF SNOMED Code(s): 135293839 Comment: Pt is doing well on full liquids. Advance to soft diet. Continue PPI but stop drip and change to BID omeprazole. No ASA, NSAIDs of fosamax at this time. Plan is for EGD next week as outpatient. She can likely go home tomorrow. (3) Iron deficiency anemia Current Visit: Yes Status: Acute Code(s): D50.9 - IRON DEFICIENCY ANEMIA, UNSPECIFIED SNOMED Code(s): 88809592 Comment: H/H is stable. Continue to monitor H/H intermittently. Start ferrous sulfate. (4) Seizure disorder Current Visit: Yes Status: Acute Code(s): G40.909 - EPILEPSY, UNSP, NOT INTRACTABLE, WITHOUT STATUS EPILEPTICUS SNOMED Code(s): 000065670 Comment: Continue keppra 500mg BID. (5) HTN (hypertension) Current Visit: Yes Status: Chronic Code(s): I10 - ESSENTIAL (PRIMARY) HYPERTENSION SNOMED Code(s): 20418660 Comment: BP is still up. Resume amlodipine 5mg daily. I am suspicous that will not be enough to control her BP. May need to increase dose. (6) Dementia Current Visit: Yes Status: Chronic Code(s): F03.90 - UNSPECIFIED DEMENTIA WITHOUT BEHAVIORAL DISTURBANCE SNOMED Code(s): 83578228 Comment: Continue namenda and aricept. (7) Hypothyroid Current Visit: Yes Status: Chronic Code(s): E03.9 - HYPOTHYROIDISM, UNSPECIFIED SNOMED Code(s): 77567441 Comment: Continue synthroid. (8) DVT prophylaxis Current Visit: Yes Status: Acute Code(s): TJY9865 - SNOMED Code(s): 499696640 Comment: ambulation/SCDs (9) Full code status Current Visit: Yes Status: Acute Code(s): Z78.9 - OTHER SPECIFIED HEALTH STATUS SNOMED Code(s): 962926287 Status and Disposition: likely home 12/11/16
[2016-12-10] MEDS ORDERED: Potassium Chlor TAB* 20 MEQ TAB.ER PO ONE (11:39)
[2016-12-10] MEDS: amLODIPine TAB* 5 MG PO SCH (12:06)
[2016-12-10] MEDS ORDERED: Atorvastatin* 40 MG TAB PO SCH (17:00)
[2016-12-10] MEDS: Memantine TAB* 10 MG PO SCH (17:20)
[2016-12-10] MEDS: Donepezil TAB* 5 MG PO SCH (17:21)
[2016-12-10] MEDS: Omeprazole CAP* 20 MG PO SCH (20:21)
[2016-12-11] MEDS: Levothyroxine TAB* 25 MCG TAB PO SCH (05:50)
[2016-12-11 06:00] LABS: Hematocrit 31 % (35-47); Hemoglobin 9.5 g/dl (12.0-16.0); Mean Corpuscular HGB Conc 31 g/dl (31-36); Mean Corpuscular Hemoglobin 21 pg (27-31); Mean Corpuscular Volume 67 fL (80-97); Mean Platelet Volume 7 um3 (7.4-10.4); Red Blood Count 4.58 10^6/ul (4.0-5.4); Red Cell Distribution Width 27 % (10.5-15); White Blood Count 9.6 10^3/ul (3.5-10.8)
[2016-12-11 06:09] LABS: Comments Flag Yes
[2016-12-11 06:23] LABS: Calcium 9.1 mg/dL (8.6-10.3); EGFR African American 95.4 (>60); EGFR Non-African American 74.2 (>60); Potassium 3.9 mmol/L (3.5-5.0)
[2016-12-11] MEDS: Omeprazole CAP* 20 MG PO SCH (08:40)
[2016-12-11] MEDS: Atenolol TAB* 25 MG PO SCH (08:40)
[2016-12-11] MEDS: amLODIPine TAB* 5 MG PO SCH (08:40)
[2016-12-11] MEDS: Losartan TAB* 25 MG PO SCH (08:40)
[2016-12-11] MEDS: levETIRAcetam TAB* 500 MG PO SCH (08:40)
--- NOTE | 2016-12-11 08:47 | PN ---
Subjective Date of Service: 12/11/16 Interval History: HOSPITALIST PROGRESS NOTE Patient seen and examined at bedside. She feels very well today. Denies abdominal pain, N/V, appetite is good and she is tolerating diet well. As per RN report, abdominal distention and diarrhea are improved. Family History: Unchanged from Admission Social History: Unchanged from Admission Past Medical History: Unchanged from Admission Objective Active Medications: Amlodipine Besylate (Norvasc Tab*) 5 mg PO DAILY [facility] Last Admin: 12/11/16 08:40 Dose: 5 mg Atenolol (Tenormin Tab*) 25 mg PO BID [facility] Last Admin: 12/11/16 08:40 Dose: 25 mg Atorvastatin Calcium (Lipitor*) 40 mg PO 1700 [facility] Last Admin: 12/10/16 17:20 Dose: 40 mg Donepezil HCl (Aricept Tab*) 10 mg PO QPM [facility] Last Admin: 12/10/16 17:21 Dose: 10 mg Hydralazine HCl (Apresoline Iv*) 10 mg IV Q4H PRN PRN Reason: Systolic >170 Last Admin: 12/08/16 16:43 Dose: 10 mg Levetiracetam (Keppra Tab*) 500 mg PO BID [facility] Last Admin: 12/11/16 08:40 Dose: 500 mg Levothyroxine Sodium (Synthroid Tab*) 50 mcg PO DAILY@0600 [facility] Last Admin: 12/11/16 05:50 Dose: 50 mcg Losartan Potassium (Cozaar Tab*) 100 mg PO QAM [facility] Last Admin: 12/11/16 08:40 Dose: 100 mg Memantine (Namenda Tab*) 10 mg PO QPM [facility] Last Admin: 12/10/16 17:20 Dose: 10 mg Omeprazole (Prilosec Cap*) 20 mg PO BID [facility] Last Admin: 12/11/16 08:40 Dose: 20 mg Ondansetron HCl (Zofran Inj*) 4 mg IV Q6H PRN PRN Reason: NAUSEA Last Admin: 12/06/16 01:13 Dose: 4 mg Vital Signs 12/10/16 12/10/16 12/10/16 12:13 15:50 19:30 Temperature 97.6 F 99.6 F Pulse Rate 59 65 Respiratory 18 16 16 Rate Blood Pressure 155/68 (mmHg) O2 Sat by Pulse 98 98 Oximetry 12/10/16 12/10/16 12/11/16 19:49 23:36 03:23 Temperature 98.1 F 97.8 F 97.9 F Pulse Rate 66 60 68 Respiratory 16 16 16 Rate Blood Pressure 145/56 143/55 171/67 (mmHg) O2 Sat by Pulse 98 98 96 Oximetry Oxygen Devices in Use Now: None Appearance: Pleasant elderly lady sitting up in bed in NAD, eating breakfast. Eyes: No Scleral Icterus Ears/Nose/Mouth/Throat: Mucous Membranes Moist Neck: Trachea Midline Respiratory: Symmetrical Chest Expansion and Respiratory Effort, Clear to Auscultation Cardiovascular: RRR - Normal S1 and S2 Abdominal: - - Soft, NT, mild distention, NG, NR, BS+ Neurological: Alert and Oriented x 3, NL Muscle Strength and Tone Lines/Tubes/Other Access: Clean, Dry and Intact Peripheral IV Nutrition: Taking PO's Result Diagrams: 12/11/16 05:38 12/11/16 05:38 Assess/Plan/Problems-Billing Ms Rubin is an 80 yo F who has a h/o osteoporosis, seizure disorder, HTN, hypothyroidism and mild dementia who presented to the ER with c/o abdominal pain and was found to be markedly anemic with large gastric ulceration with possible perforation. - Patient Problems (1) Diarrhea Comment: - Resolved. - Likely side effect from iron sucrose vs Zosyn. (2) Gastric ulcer due to nonsteroidal anti-inflammatory drug (NSAID) Comment: - Patient is tolerating soft diet well. - No ASA, NSAIDs or Fosamax at this time. - Plan is for EGD next week as outpatient. (3) Iron deficiency anemia Comment: - Start ferrous sulfate. (4) Seizure disorder Comment: - Continue Keppra 500mg BID. (5) HTN (hypertension) Comment: - Continue amlodipine, atenolol, and Losartan. (6) Dementia Comment: - Continue Namenda and Aricept. (7) Hypothyroid Comment: - Continue Synthroid. (8) DVT prophylaxis Comment: - Pharmacological prophylaxis contraindicated in the setting of gastric ulcer with potential for bleed. Continue ambulation/SCDs. (9) Full code status Status and Disposition: Will d/c home today. See dictated note.
[2016-12-11 09:39] VITALS: BP 131/76
--- NOTE | 2016-12-11 15:22 | DS ---
DISCHARGE SUMMARY: DATE OF ADMISSION: 12/05/16 DATE OF DISCHARGE: 12/11/16 PRIMARY CARE PROVIDER: Dr. Matthews. MEDICAL APPOINTMENT CLERK: Dr. Bower. DISCHARGE DIAGNOSES: 1. Gastric ulcer, likely due to nonsteroidal anti-inflammatory drug use. 2. Iron deficiency anemia. 3. Mild delirium. 4. Hypokalemia. 5. Mild acute pancreatitis. SECONDARY DIAGNOSES: 1. History of cerebrovascular accident (MRI brain done in April 2014 showed a small subtle nonhemorrhagic acute to subacute right frontal and right occipital infarct). 2. Seizure disorder. 3. Hypertension. 4. Hyperlipidemia. 5. Hypothyroidism. 6. Acoustic neuroma. 7. Dementia. MEDICATION LIST: 1. Keppra 500 mg p.o. b.i.d. 2. Memantine 10 mg p.o. q.p.m. 3. Donepezil 10 mg p.o. q.p.m. 4. Atorvastatin 40 mg p.o. daily. 5. Atenolol 25 mg p.o. b.i.d. 6. Irbesartan 300 mg p.o. q.a.m. 7. Cyanocobalamin 1000 mcg p.o. daily. 8. Amlodipine 5 mg p.o. daily. 9. Levothyroxine 50 mcg p.o. daily. New medications: 1. Omeprazole 20 mg p.o. b.i.d. 2. Ferrous sulfate 325 mg p.o. daily. Aspirin was discontinued for now. HOSPITAL COURSE: Ms. Rubin is an 80-year-old lady with a past medical history as stated above that presented to the emergency room with complaints of several weeks of abdominal pain. For more details about her presentation, I refer you to her history and physical. CT of the abdomen and pelvis done in the emergency room showed findings consistent with a perforated gastric ulcer with loculated gas and fluid collection in the lesser sac including extravasated enteric contrast from the stomach. Surrounding inflammatory change including surrounding the tail of the pancreas. The patient was admitted for further evaluation and treatment, started on antibiotics as there was concern for sepsis at that time considering her white cell count of 18.5. She was seen in consultation by General Surgery (Dr. Harrell) . His impression was the patient has longstanding abdominal pain with a CT scan consistent with what seems to be perforation in the posterior stomach in a patient who has been showing significant anemia. Given the benign nature of her exam and normal vitals, his recommendation was for bowel rest, IV antibiotics, IV fluids, and serial abdominal exams. He felt that at that time, although her CT scan does represent a surgical emergency, clinically she was not behaving with peritoneal signs or active sepsis. The patient was also seen in consultation by Gastroenterology (Dr. Bower) and he felt that the patient appeared to have a gastric perforation that is now contained likely secondary to nonsteroidal use considering her chronic use of Aleve. He felt that she was doing very well at the time of his evaluation and that the surgical team felt that she was not a surgical candidate at that time. He recommended an upper endoscopy as outpatient to evaluate for the ulcer and to perform biopsies to confirm that there is no malignant component to it, but he felt that that should not be performed during this admission to allow the perforation to heal a little bit better given the fact that during the endoscopy , he will need to insufflate air, which could aggravate the walled-off perforation. The patient had progressive symptomatic treatment. Her diet was advanced and she tolerated it well. An upper GI series was performed and showed an ulceration along the greater curvature of the stomach corresponding to the findings noted on CT on December 05. There was no appreciable extravasation and the differential does include ulcerative neoplasm. The patient continued to be followed by General Surgery and her symptoms continued to improve. The impression was the patient most likely had a chronic posterior large penetrating gastric ulcer rather than an acute perforation. This likely also explained her mild acute pancreatitis with elevation of her lipase up to 475. The patient today states that she has no more abdominal pain. Denies nausea or vomiting. She is tolerating diet well and it was felt that she will be stable for discharge. She already has an appointment for an endoscopy as outpatient with Dr. Bower on December 19, 11:45 a.m. at [facility]. The patient was found to be anemic on admission with a hemoglobin of 6.1. She received 2 PRBCs and her hemoglobin has been stable since. I believe the patient was not actively bleeding at the time of admission, but has likely had chronic blood loss from the ulcer over a long period of time as she has thrombocytopenia and iron deficiency anemia with an iron level of 12 and a low normal ferritin of 11.3. She received IV iron, sucrose and she developed diarrhea that was felt could be secondary to the iron infusions or antibiotics. Those medications were discontinued with resolution of diarrhea and she is now being started on p.o. iron initially on low dose, so this will need to be adjusted as outpatient. If she cannot tolerate it, maybe arrangements could be made for Hematology followup as outpatient for IV iron therapy with different formulation. The patient has a history of dementia managed with Namenda and Aricept as outpatient. She did have some episodes of mild confusion while in the hospital but appears to be back to her baseline at this time. The patient is medically stable for discharge home today and her daughter ( Eloisa Santiago) was called and updated. PHYSICAL EXAMINATION: Vital Signs: Temperature 98.2, heart rate is 75, respiratory rate is 16, oxygen saturation is 97% on room air, blood pressure is 131/76. General: The patient is a pleasant elderly lady, lying in bed, in no acute distress. CVS: Normal S1 and S2. Regular rate and rhythm. Chest: Breath sounds present bilaterally with no added sounds. Abdomen is soft with mild distention. No tenderness, no guarding, no rebound. Bowel sounds are present. Extremities: No edema. Neuro: She is alert, awake, and oriented x3. Able to move all four extremities. DIET: Low-salt, soft diet. ACTIVITIES: As tolerated. DISPOSITION: To home. STATUS WHILE IN HOSPITAL: Inpatient. Please keep in mind that this is a summarized version of this patient's hospital stay. If you need more information, please feel free to call me at [phone] or please obtain a full medical record. TIME SPENT: Approximately 45 minutes was spent to complete this discharge. CC: Dr. Matthews; Dr. Bower* [id number]/[facility] #: [id number] [facility]
== END 2016-12-11 10:00 | disposition home or self-care (01) | DRG 380 ==
LOC: ED 17:53 → SSU 12-06 02:52
PROVIDERS: ADMIT Hospitalist; ATTEND Internal Medicine
PROC: 30233N1 Transfusion of Nonautologous Red Blood Cells into Peripheral Vein, Percutaneous Approach (ICD-10-PCS; principal; 2016-12-06)
DX: K25.5 Chronic or unspecified gastric ulcer with perforation (principal); K85.90 Acute pancreatitis without necrosis or infection, unspecified; G30.9 Alzheimer's disease, unspecified; F05 Delirium due to known physiological condition; G40.909 Epilepsy, unspecified, not intractable, without status epilepticus; D50.9 Iron deficiency anemia, unspecified; E87.6 Hypokalemia; I10 Essential (primary) hypertension; E78.5 Hyperlipidemia, unspecified; E03.9 Hypothyroidism, unspecified; D33.3 Benign neoplasm of cranial nerves; M81.0 Age-related osteoporosis without current pathological fracture; T39.315A Adverse effect of propionic acid derivatives, initial encounter; F02.80 Dementia in other diseases classified elsewhere, unspecified severity, without behavioral disturbance, psychotic disturbance, mood disturbance, and anxiety; Z86.73 Personal history of transient ischemic attack (TIA), and cerebral infarction without residual deficits; Z79.82 Long term (current) use of aspirin; Z79.899 Other long term (current) drug therapy
CPT/HCPCS: 36415; 74177; 74246; 80048; 80053; 81003; 82150; 82272; 82607; 82728; 82746; 83540; 83550; 83605; 83615; 83690; 84484; 85014; 85018; 85025; 85027; 85045; 85060; 86140; 86850; 86900; 86901; 86922; 93005; A9270-GY; J0360; J1170; J1756; J2405; J2543; J3480; P9016; Q9967

== ENCOUNTER 2018-12-04 07:46 | Emergency (ER) | payer MEDICARE, BC ==
[2018-12-04] MEDS ORDERED: Ketorolac INJ* 60 MG/2 ML VIAL IM ONE (08:13)
[2018-12-04] MEDS ORDERED: HYDROcodone/ACETAMIN 5-325 MG* 1 TAB PO ONE (08:14)
--- NOTE | 2018-12-04 08:16 | ED ---
Complex/Multi-Sys Presentation - HPI Summary HPI Summary: A 82 y/o female accompanied by family presents to the ED c/o left hip pain. Currently, the patient is still experiencing left hip pain reaching 5/10 in severity. As per triage, "Pt c/o intermittent L hip pain. Pt has hx L hip replacement". According to the patient, her left hip all of a sudden started hurting. The pain is radiating down her left leg. She denies any fall, trauma to the area, increase in ambulance or any heavy lifting. She denies any fevers. Patient took no medications for pain. No known allergies to medications. She is not on any blood thinner. Home Medications Medication Instructions Recorded Confirmed Type Atenolol TAB* [Tenormin TAB* 25 MG] 25 mg PO BID 05/17/14 12/19/16 History Atorvastatin* [Lipitor 10 MG*] 40 mg PO 1700 05/17/14 12/19/16 History Cyanocobalamin (Vitamin B-12) 1,000 mcg PO DAILY 05/17/14 12/19/16 History [Vitamin B-12] Donepezil TAB* [Aricept 5 MG TAB*] 10 mg PO QPM 05/17/14 12/19/16 History Irbesartan (NF) [Avapro (NF)] 300 mg PO QAM 05/17/14 12/19/16 History Levothyroxine TAB* [Synthroid 25 50 mcg PO DAILY 05/17/14 12/19/16 History MCG TAB*] Memantine TAB* [Namenda TAB*] 10 mg PO QPM 05/17/14 12/19/16 History amLODIPine TAB* [Norvasc 5 mg TAB*] 5 mg PO DAILY 10/09/14 12/19/16 History levETIRAcetam [Keppra 500] 500 mg PO BID 12/05/16 12/19/16 History Ferrous Sulfate TAB* 325 mg PO DAILY #30 tab 12/11/16 12/19/16 Rx Omeprazole CAP* [Prilosec CAP* 20 20 mg PO BID #60 cap. 12/11/16 12/19/16 Rx MG] Cholecalciferol [Vitamin D3] 2,000 unit PO DAILY 12/19/16 12/19/16 History - History Of Current Complaint Chief Complaint: EDHipPelvisInjury Time Seen by Provider: 12/04/18 08:01 Hx Obtained From: Patient Onset/Duration: Sudden Onset, Lasting Days, Still Present Timing: Constant Severity Currently: Moderate - 5/10 Severity Initially: Moderate - 5/10 Location: Pain At: - LEFT HIP, Radiates To: - LEFT LEG Aggravating Factor(s): NOTHING Alleviating Factor(s): NOTHING Associated Signs And Symptoms: Negative: Fever - Allergies/Home Medications Allergies/Adverse Reactions: Allergies Allergy/AdvReac Type Severity Reaction Status Date / Time No Known Allergies Allergy Verified 12/19/16 13:46 PMH/Surg Hx/FS Hx/Imm Hx Endocrine/Hematology History: Reports: Hx Thyroid Disease Denies: Hx Diabetes Cardiovascular History: Reports: Hx Hypertension Denies: Hx Pacemaker/ICD GI History: Reports: Hx Gastroesophageal Reflux Disease, Other GI Disorders - Hx GERD History: Denies: Hx Kidney Stones, Hx Renal Disease Musculoskeletal History: Reports: Hx Arthritis, Hx Back Problems, Hx Orthopedic Injury - right shoulder, left hip replaced, Hx Osteoporosis, Other Musculoskeletal History - R shoulder and L hip replacement Sensory History: Reports: Hx Contacts or Glasses, 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 HYSTERECTOMY. MAY 2008 RIGHT SHOULDER REPLACED Hx Anesthesia Reactions: No - Immunization History Date of Tetanus Vaccine: pt unsure Date of Influenza Vaccine: pt unsure Infectious Disease History: No Infectious Disease History: Reports: Hx Shingles - 1990 Denies: Traveled Outside the [place] in Last 30 Days - Family History Known Family History: Negative: Hypertension, Diabetes Family History: FHx of breast CA - Mother - Social History Alcohol Use: Rare Substance Use Type: Reports: None Smoking Status (MU): Former Smoker Type: Cigarettes Have You Smoked in the Last Year: No Review of Systems Negative: Fever Positive: Other - POSITIVE: LEFT HIP PAIN RADIATING DOWN HER LEFT LEG All Other Systems Reviewed And Are Negative: Yes Physical Exam - Summary Physical Exam Summary: VITAL SIGNS: Reviewed. GENERAL: Patient is a well-developed and nourished female who is lying comfortable in the stretcher. Patient is not in any acute respiratory distress. HEAD AND FACE: No signs of trauma. No ecchymosis, hematomas or skull depressions. No sinus tenderness. EYES: PERRLA, EOMI x 2, No injected conjunctiva, no nystagmus. EARS: Hearing grossly intact. Ear canals and tympanic membranes are within normal limits. MOUTH: Oropharynx within normal limits. NECK: Supple, trachea is midline, no adenopathy, no JVD, no carotid bruit, no c- spine tenderness, neck with full ROM. CHEST: Symmetric, no tenderness at palpation LUNGS: Clear to auscultation bilaterally. No wheezing or crackles. CVS: Regular rate and rhythm, S1 and S2 present, no murmurs or gallops appreciated. ABDOMEN: Soft, non-tender. No signs of distention. No rebound no guarding, and no masses palpated. Bowel sounds are normal. EXTREMITIES: FROM in all major joints, no edema, no cyanosis or clubbing, decreased ROM of left hip secondary to pain. Good capillary refil, no rashes or erythema, good pulses. The patient neurovascular intact. NEURO: Alert and oriented x 3. No acute neurological deficits. Speech is normal and follows commands. SKIN: Dry and warm Triage Information Reviewed: Yes Vital Signs On Initial Exam: Initial Vitals Temp Pulse Resp BP Pulse Ox 97.5 F 58 14 181/74 97 12/04/18 07:52 12/04/18 07:52 12/04/18 07:52 12/04/18 07:52 12/04/18 07:52 Vital Signs Reviewed: Yes Diagnostics - Vital Signs Vital Signs Temp Pulse Resp BP Pulse Ox 12/04/18 07:52 97.5 F 58 14 181/74 97 - Laboratory Lab Statement: Any lab studies that have been ordered have been reviewed, and results considered in the medical decision making process. - Radiology LEFT HIP XR Radiology Interpretation Completed By: Radiologist Summary of Radiographic Findings: Anatomic alignment of left hip prosthesis without radiographically apparent acute abnormality. If the patient's symptoms persist follow-up imaging is recommended. ED PHYSICIAN REVIEWED THIS RADIOLOGY REPORT. Re-Evaluation - Re-Evaluation First Eval Re-Evaluation Time: 09:50 Change: Improved Comment: PATIENT FEELS MUCH BETTER. DISCUSSED RESULTS AND PLAN WITH PATIENT. Complex Multi-Symp Course/Dx Assessment/Plan: A 82 y/o female accompanied by family presents to the ED c/o left hip pain. Currently, the patient is still experiencing left hip pain reaching 5/10 in severity. As per triage, "Pt c/o intermittent L hip pain. Pt has hx L hip replacement". According to the patient, her left hip all of a sudden started hurting. The pain is radiating down her left leg. She denies any fall, trauma to the area, increase in ambulance or any heavy lifting. She denies any fevers. Patient took no medications for pain. No known allergies to medications. She is not on any blood thinner. X-ray of the left hip and pelvis impression: Anatomic alignment of the left hip prosthesis without radiographically apparent acute abnormality. In the ED course the patient was given Toradol Bells for the pain. At this point the patients pain has significantly improved. The patient is ambulating with minimal pain. The patient has good pulses and good capillary refill. The patient is neurovascular intact. The patient doesnt have any erythema or swelling therefore there is no signs of cellulitis. The patient is having no rash/vesicular rash therefore the patient has no signs of shingles. She will be given a prescription for Bells for the pain and she will be taking ibuprofen as needed. She will follow- up with primary care physician. If the pain continues to increase or does not improve the patient will follow-up with orthopedics. The patient understands and agrees. The patient is ambulating out of the emergency department. - Diagnoses Provider Diagnoses: Left hip pain Discharge - Sign-Out/Discharge Documenting (check all that apply): Patient Departure - DISCHARGE - Discharge Plan Condition: Stable Disposition: HOME Prescriptions: HYDROcodone/ACETAMIN 5-325 MG* [Bells 5-325 TAB*] 1 tab PO Q6H PRN #10 tab MDD 4 PRN Reason: Pain Patient Education Materials: Hip Pain (ED) Referrals: [facility] [Outside] - 3 Days [facility] [Outside] - 3 Days Jackleine Warner MD [Medical Doctor] - If Needed Additional Instructions: FOLLOW UP WITH YOUR PRIMARY CARE PROVIDER OR [facility] IN 3 DAYS. FOLLOW UP WITH ORTHOPEDICS IF NEEDED. TAKE MEDICATION PRESCRIBED. RETURN TO ED FOR ANY NEW OR WORSENING SYMPTOMS. - Attestation Statements Document Initiated by Scribe: Yes Documenting Scribe: Ruben Hill Provider For Whom Scribe is Documenting (Include Credential): Arthur Dias MD Scribe Attestation: I, Ruben Hill, scribed for Arthur Dias MD on 12/04/18 at 0952. Status of Scribe Document: Ready Attestations Scribe Attestation: I, Dr. Dias personally performed the services described in this documentation as scribed in my presence and it is both accurate and complete.
[2018-12-04 10:06] VITALS: BP 173/67
== END 2018-12-04 10:05 | disposition home or self-care (01) ==
LOC: ED 07:46
DX: M25.552 Pain in left hip (principal); Z87.891 Personal history of nicotine dependence
CPT/HCPCS: 96372; 99282; J1885

== ENCOUNTER 2018-12-18 09:47 | Emergency (ER) | payer MEDICARE, BC ==
[2018-12-18] MEDS ORDERED: Ondansetron ODT TAB* 4 MG PO ONE (10:24)
[2018-12-18] MEDS ORDERED: oxyCODONE/Acetamin 5/325 MG* TAB PO ONE (10:24)
--- NOTE | 2018-12-18 10:25 | ED ---
Lower Extremity - HPI Summary HPI Summary: This patient is a 83 year old F presenting to [facility] with a chief complaint of intermittent sharp left hip pain since 3-4 days ago. She states the pain radiates down the side of her left leg. She denies fevers, chills, nausea vomiting, and dysuria. She was seen here two weeks ago and received a shot of Toradol for her pain. She states her pain returned a couple days later. She was taking hydrocodone/acetaminophen for the pain at home and states that helped more than the shot. - History of Current Complaint Chief Complaint: EDHipPelvisInjury Stated Complaint: LEFT HIP PAIN Time Seen by Provider: 12/18/18 10:04 Hx Obtained From: Patient Severity Currently: Mild Pain Intensity: 5 Pain Scale Used: 0-10 Numeric Timing: Intermittent Location: Is Discrete @ - left hip - Allergies/Home Medications Allergies/Adverse Reactions: Allergies Allergy/AdvReac Type Severity Reaction Status Date / Time No Known Allergies Allergy Verified 12/18/18 10:02 PMH/Surg Hx/FS Hx/Imm Hx Endocrine/Hematology History: Reports: Hx Thyroid Disease Denies: Hx Diabetes Cardiovascular History: Reports: Hx Hypertension Denies: Hx Pacemaker/ICD GI History: Reports: Hx Gastroesophageal Reflux Disease, Other GI Disorders - Hx GERD History: Denies: Hx Kidney Stones, Hx Renal Disease Musculoskeletal History: Reports: Hx Arthritis, Hx Back Problems, Hx Orthopedic Injury - right shoulder, left hip replaced, Hx Osteoporosis, Other Musculoskeletal History - R shoulder and L hip replacement Sensory History: Reports: Hx Contacts or Glasses, 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 HYSTERECTOMY. MAY 2008 RIGHT SHOULDER REPLACED Hx Anesthesia Reactions: No - Immunization History Date of Tetanus Vaccine: pt unsure Date of Influenza Vaccine: pt unsure Infectious Disease History: No Infectious Disease History: Reports: Hx Shingles - 1990 Denies: Traveled Outside the [place] in Last 30 Days - Family History Known Family History: Negative: Hypertension, Diabetes Family History: FHx of breast CA - Mother - Social History Alcohol Use: Rare Substance Use Type: Reports: None Smoking Status (MU): Former Smoker Type: Cigarettes Have You Smoked in the Last Year: No Review of Systems Negative: Fever Positive: Myalgia - Left hip All Other Systems Reviewed And Are Negative: Yes Physical Exam - Summary Physical Exam Summary: GENERAL: Patient is a well-developed and nourished F who is lying comfortable in the stretcher. Patient is not in any acute respiratory distress. HEAD AND FACE: Normocephalic EYES: PERRLA, EOMI x 2. EARS: Hearing grossly intact. MOUTH: Oropharynx within normal limits. NECK: Supple, trachea is midline, no adenopathy, no JVD, no carotid bruit. CHEST: Symmetric, no tenderness at palpation LUNGS: Clear to auscultation bilaterally. No wheezing or crackles. CVS: Regular rate and rhythm, S1 and S2 present, no murmurs or gallops appreciated. ABDOMEN: Soft, non-tender. Bowel sounds are normal. No abdominal abnormal pulsations. EXTREMITIES: Full ROM in all major joints, no edema, no cyanosis or clubbing. Tenderness to palpation to the left lateral side of the hip and lateral thigh NEURO: Alert and oriented x 3. No acute neurological deficits. Speech is normal and follows commands. Neurovascularly in tact. 5/5 motor in terms of strength. SKIN: Dry and warm Triage Information Reviewed: Yes Vital Signs On Initial Exam: Initial Vitals Temp Pulse Resp BP Pulse Ox 97.6 F 65 16 202/82 94 12/18/18 09:57 12/18/18 09:57 12/18/18 09:57 12/18/18 09:57 12/18/18 09:57 Vital Signs Reviewed: Yes Diagnostics - Vital Signs Vital Signs Temp Pulse Resp BP Pulse Ox 12/18/18 09:57 97.6 F 65 16 202/82 94 - Laboratory Lab Statement: Any lab studies that have been ordered have been reviewed, and results considered in the medical decision making process. Re-Evaluation - Re-Evaluation First Eval Re-Evaluation Time: 11:39 Change: Improved - Plan for treatment and discharge discussed with patient. Lower Extremity Course/Dx - Course Course Of Treatment: This patient is a 83 year old F presenting to [facility] with a chief complaint of intermittent sharp left hip pain since 3-4 days ago. Patient was seen here recently for similar symptoms and had X rays done which I reviewed. I suspect her symptoms are secondary to meralgia paraesthetica. I discussed results with patient and he/she reports feeling better. She is hemodynamically stable and safe for discharge. Strict return precautions given and she will otherwise follow up with her PCP. - Diagnoses Provider Diagnoses: Hip pain Discharge - Sign-Out/Discharge Documenting (check all that apply): Patient Departure - Discharge - Discharge Plan Condition: Stable Disposition: HOME Prescriptions: Oxycodone HCl/Acetaminophen [Percocet 5-325 mg Tablet] 1 each PO QID 3 Days #12 tablet MDD 4 Patient Education Materials: Meralgia Paresthetica (ED) Referrals: Sharlene Fragoso MD [Primary Care Provider] - Additional Instructions: Return to ED with any new or worsening symptoms. - Billing Disposition and Condition Condition: STABLE Disposition: Home - Attestation Statements Document Initiated by Scribe: Yes Documenting Scribe: Jefe Ernandez Provider For Whom Gus is Documenting (Include Credential): Gaurav Santa MD Scribe Attestation: IJefe, scribed for Gaurav Santa MD on 12/19/18 at 1039. Scribe Documentation Reviewed: Yes Provider Attestation: The documentation as recorded by the Jefe nicholas accurately reflects the service I personally performed and the decisions made by me, Chris Santa MD Status of Scribe Document: Viewed
[2018-12-18 11:52] VITALS: BP 165/80
== END 2018-12-18 12:04 | disposition home or self-care (01) ==
LOC: ED 09:47
DX: M25.552 Pain in left hip (principal); Z87.891 Personal history of nicotine dependence
CPT/HCPCS: 99282; A9270-GY

== ENCOUNTER 2019-08-16 10:01 | Inpatient (IN) | payer MEDICARE, BC ==
[2019-08-16] MEDS ORDERED: NS 0.9% 1000 ML** 1,000 ML IV ONE (10:07)
--- OUTSIDE RECORDS SUMMARY | 2019-08-16 10:10 | XMS REPORT | Continuity of Care Document ---
:1935 External Reference #:[id number] Author Name Jennifer Velázquez M.D. 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 Onset: 10/09/2014 generalized seizure History of cerebrovascular accident Jennifer Velázquez M.D. Onset: 12/10/2015 Note: right frontal and right occipital on MRI Dyslipidemia Jennifer Velázquez M.D. Onset: 12/10/2015 Essential hypertension Jennifer Velázquez M.D. Onset: 12/10/2015 History of acoustic neuroma Jennifer Velázquez M.D. Onset: 12/10/2015 Note: left with resection and facial weakness. Vitamin B12 deficiency (non anemic) Jennifer Velázquez M.D. Onset: 12/10/2015 Mild cognitive disorder Jennifer Velázquez M.D. Onset: 12/10/2015 Note: MoCA: 03/2015: ; 03/2016: ; 03/2017: ; 06/2018: Intracranial meningioma Jennifer Velázquez M.D. Onset: 04/07/2016 Note: left frontal lobe 1.1 cm. (Stable on MRI between 10/13 and 12/15) Social History Type Date Description Comments Sex Unknown Tobacco Use Start: Unknown Never Smoked Cigarettes Smokeless Tobacco Never Used Smokeless Tobacco ETOH Use Denies alcohol use Recreational Drug Use Denies Drug Use Tobacco Use Start: Unknown Patient has never smoked Smoking Status Reviewed: 07/26/19 Patient has never smoked Exercise Type/Frequency Exercises sporadically Allergies, Adverse Reactions, Alerts Active Allergies Reaction Severity Comments Date NSAIDs 04/29/2017 Inactive Allergies NKDA 01/04/2014 Medications Active Medications SIG Qnty Indications Ordering Provider Date Vitamin B12 1 po daily 90tabs Unknown 1000mcg Tablets Irbesartan 1 po daily Unknown 300mg Tablets Namenda 1 by mouth 180tabs Jennifer Velázquez, 10mg Tablets twice a day M.D. Levothyroxine Sodium 1 po daily 90tabs Unknown 50mcg Tablets Donepezil HCL 1 by mouth 90tabs Jennifer Velázquez, 10mg daily M.D. Tablets Amlodipine Besylate 1 by mouth 30tabs Unknown 5mg every day Tablets Vitamin D3 every day by 30tabs Unknown 2000Unit mouth Tablets Atorvastatin Calcium 1 by mouth Unknown 40mg every day Tablets Keppra 1 by mouth 180tabs Jennifer Velázquez, 500mg Tablets twice daily M.D. Metoprolol Succinate take 1 by mouth Unknown ER each day 25mg Tablets ER 24HR Acetaminophen Extra 2 tabs by mouth Unknown Strength every 8 hours 500mg Tablets as needed for pain or fever EX-Lax 1/4 Tab by Unknown mouth as needed Immunizations Description No Information Available Vital Signs Date Vital Result Comment 07/26/2019 12:58pm Height 61 inches 5'1" Weight 132.50 lb Heart Rate 87 /min BP Systolic Sitting 142 mmHg BP Diastolic Sitting 70 mmHg Respiratory Rate 18 /min O2 % BldC Oximetry 96 % BMI (Body Mass Index) 25.0 kg/m2 01/18/2019 9:30am Weight 140.00 lb Heart Rate 56 /min BP Systolic Sitting 164 mmHg BP Diastolic Sitting 94 mmHg Respiratory Rate 16 /min Pain Level 5 O2 % BldC Oximetry 96 % Results Description No Information Available Procedures Description No Information Available Medical Devices Description No Information Available Encounters Description No Information Available Assessments Date Code Description Provider 07/26/2019 G43.719 Chronic migraine without aura, intractable, Jennifer Velázquez M.D. without status m 07/26/2019 G40.909 Epilepsy, unspecified, not intractable, Jennifer Velázquez M.D. 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 07/26/2019 D32.0 Benign neoplasm of cerebral meninges Jennifer Velázquez M.D. Plan of Treatment Future Appointment(s):10/18/2019 1:30 pm - Jennifer Vel[facility]quez M.D. at [facility]07/26/2019 - Jennifer Velázquez M.D.G43.719 Chronic migraine without aura, intractable, without status mFollow up:after MRI [id number] Epilepsy, unspecified, not intractable, without status [id number] Alzheimer's disease with late [id number] Benign neoplasm of cerebral meninges Functional Status Description No Information Available Mental Status Description No Information Available Referrals Description No Information Available
--- NOTE | 2019-08-16 10:16 | ED ---
Neurological HPI - HPI Summary HPI Summary: Pt is a 83 y/o F who presents to the ED via EMS for a fall that occurred last night when she went to kitchen and collapsed. Around 0900 this morning she had weakness in the left leg and discomfort in lumbar back as per EMS. She has hip pain and she states it took her a little while for her speech to return to baseline after the fall. She has a facial droop at baseline with associated slurred speech. She has a PMHx of HTN, Alzheimers disease, and has a cerebral shunt, denies PMHx of stroke or TIA. She had a brain MRI performed in [place] by Dr. Velázquez last Thursday for a growth in lining of brain as per daughter. Pt has progressively getting worse over the last couple of weeks as per pts family. Medications reviewed. Allergies noted. 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 Onset/Duration: Sudden Onset, Started hours ago Timing: Sudden Onset Onset Severity: Moderate Current Severity: Moderate Character: Weak - Left leg Associated Signs and Symptoms: Positive: Impaired Speech - Additional Pertinent History Primary Care Physician: [id number] - Allergy/Home Medications Allergies/Adverse Reactions: Allergies Allergy/AdvReac Type Severity Reaction Status Date / Time No Known Allergies Allergy Verified 07/28/19 13:55 Home Medications: Home Medications Cholecalciferol CAP/TAB(NF) [Vitamin D3 CAP/TAB (NF)] 2,000 unit PO DAILY [History Confirmed 08/16/19] Metoprolol Succinate XL TAB* [Toprol XL TAB*] 25 mg PO DAILY 08/16/19 [History Confirmed 08/16/19] Olmesartan (NF) [Benicar (NF)] 20 mg PO DAILY 08/16/19 [History Confirmed ] PMH/Surg Hx/FS Hx/Imm Hx Previously Healthy: Yes Endocrine/Hematology History: Reports: Hx Thyroid Disease Denies: Hx Diabetes Cardiovascular History: Reports: Hx Hypertension Denies: Hx Pacemaker/ICD GI History: Reports: Hx Gastroesophageal Reflux Disease, Other GI Disorders - Hx GERD History: Denies: Hx Kidney Stones, Hx Renal Disease Musculoskeletal History: Reports: Hx Arthritis, Hx Back Problems, Hx Orthopedic Injury - right shoulder, left hip replaced, Hx Osteoporosis, Other Musculoskeletal History - R shoulder and L hip replacement Sensory History: Reports: Hx Contacts or Glasses, 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 HYSTERECTOMY. MAY 2008 RIGHT SHOULDER REPLACED. TONSILECTOMY. APPENDECTOMY. EXCISION OF MENINGIOMA 30 YRS AGO- HAS HAD SEVERAL MRI'S HERE SINCE Hx Anesthesia Reactions: No - Immunization History Date of Tetanus Vaccine: pt unsure Date of Influenza Vaccine: pt unsure Infectious Disease History: Reports: Hx Shingles - 1990 Denies: Traveled Outside the [place] in Last 30 Days - Family History Known Family History: Negative: Hypertension, Diabetes Family History: FHx of breast CA - Mother - Social History Alcohol Use: Rare Hx Substance Use: No Substance Use Type: Reports: None Hx Tobacco Use: Yes Smoking Status (MU): Former Smoker Type: Cigarettes Have You Smoked in the Last Year: No Review of Systems Positive: Myalgia - discomfort in lumbar region Positive: Weakness, Slurred Speech - worse than at baseline All Other Systems Reviewed And Are Negative: Yes Physical Exam - Summary Physical Exam Summary: Constitutional: Well-developed, Well-nourished, Alert. (-) Distressed Skin: Warm, Dry HENT: Normocephalic; Atraumatic Eyes: Conjunctiva normal Neck: Musculoskeletal ROM normal neck. (-) JVD, (-) Stridor, (-) Tracheal deviation Cardio: Rhythm regular, rate normal, Heart sounds normal; Intact distal pulses; The pedal pulses are 2+ and symmetric. Radial pulses are 2+ and symmetric. (-) Murmur Pulmonary/Chest wall: Effort normal. (-) Respiratory distress, (-) Wheezes, (-) Rales Abd: Soft, (-) tenderness, (-) Distension, (-) Guarding, (-) Rebound Musculoskeletal: (-) Edema. Pain and tenderness in anterior hip. Able to range her leg at her hip, DP/PT pulse 2+. Lymph: (-) Cervical adenopathy Neuro: Alert, Oriented x3. left facial droop, slurred speech, see NIH stroke scale for more in depth exam. Psych: Mood and affect Normal Triage Information Reviewed: Yes Vital Signs Reviewed: Yes Diagnostics - Laboratory Result Diagrams: 08/19/19 04:47 08/19/19 04:47 Lab Statement: Any lab studies that have been ordered have been reviewed, and results considered in the medical decision making process. - Radiology chest X-ray Radiology Interpretation Completed By: Radiologist Summary of Radiographic Findings: Chest X-ray IMPRESSION: HYPERINFLATION. NO ACTIVE CARDIOPULMONARY DISEASE. Reviewed by ED physician. Hip/Pelvis X-ray Radiology Interpretation Completed By: Radiologist Summary of Radiographic Findings: Left hip/Pelvis X-ray IMPRESSION: 1. LEFT INFERIOR PUBIC RAMUS FRACTURE. 2. STATUS POST LEFT HIP ARTHROPLASTY. 3. OSTEOPENIA. Reviewed by ED physician. - CT Brain CTA CT Interpretation Completed By: Radiologist Summary of CT Findings: Head CTA IMPRESSION: 1. STABLE LEFT FRONTAL MENINGIOMA. 2. CHRONIC SMALL VESSEL ISCHEMIC CHANGE. 3. ATHEROSCLEROSIS. 4. NO ANEURYSM, VASCULAR MALFORMATION, OCCLUSION, OR STENOSIS OF THE VISUALIZED. INTRACRANIAL CIRCULATION.. 5. NO INTERNAL CAROTID ARTERY STENOSIS BY NASCET CRITERIA. Reviewed by ED physician. - EKG 1045 Cardiac Rate: NL - 84 BPM EKG Rhythm: Sinus Rhythm ST Segment: Normal Ectopy: None Summary of EKG Findings: EKG at 1045 on 08/16/19 shows 84 BPM, no STEMI, normal sinus rhythm. 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: Both Correctly Best Gaze (Only Horizontal Eye Movement): Normal Visual Field Testing: No Visual Loss Facial Paresis-Pt to Smile & Close Eyes or Grimace Symmetry: Minor Paralysis Motor Function - Right Arm: No Drift-Holds 10 Seconds Motor Function - Left Arm: No Drift-Holds 10 Seconds Motor Function - Right Leg: No Drift-Holds 10 Seconds Motor Function - Left Leg: No Drift-Holds 10 Seconds Limb Ataxia-Must be out of Proportion to Weakness Present: Absent Sensory (Use Pinprick to Test Arms/Legs/Trunk/Face): Normal Best Language (Describe Picture, Name Items): Some Loss Dysarthria (Read Several Words): Slurs Some Words Extinction and Inattention: No Abnormality Total Score: 4 Re-Evaluation - Re-Evaluation 1st re-eval Change: Unchanged Comment: At 12:48, attempted ambulation, pt unable to tolerate weight bearing. Course/Dx - Diagnoses Provider Diagnoses: Slurred speech, Facial droop, Fall, Fracture of left inferior pubic ramus Discharge ED - Sign-Out/Discharge Documenting (check all that apply): Patient Departure Patient Received Moderate/Deep Sedation with Procedure: No - Discharge Plan Condition: Stable Disposition: ADMITTED TO [facility] - Billing Disposition and Condition Condition: STABLE Disposition: Admitted to [facility] - Attestation Statements Document Initiated by Scribe: Yes Documenting Scribe: Abena Christian Provider For Whom Scribe is Documenting (Include Credential): Julio Busby MD. Scribe Attestation: I, Abena Christian, scribed for Julio Busby MD. on 09/01/19 at 0632. Scribe Documentation Reviewed: Yes Provider Attestation: The documentation as recorded by the scribe, Abena Christian accurately reflects the service I personally performed and the decisions made by me, Julio Busby MD. Status of Scribe Document: Viewed Consult Consult: 12:36: I spoke with Dr. Wynne who recommended discharge if weight bearing is tolerated. 12:48: Attempted ambulation, pt unable to tolerate weight bearing, 12:53: I consulted Dr. Laguna who accepts that pt be admitted to the hospital.
[2019-08-16 10:52] LABS: ABS Lymphocytes 0.8 10^3/ul (1.0-4.8); ABS Monocytes 0.7 10^3/ul (0-0.8); ABS Neutrophils 9.7 10^3/ul (1.5-7.7); Eosinophil % 0.1 %; Hematocrit 45 % (35-47); Hemoglobin 15.3 g/dL (12.0-16.0); Lymphocyte % 7.4 %; Mean Corpuscular HGB Conc 34 g/dL (31-36); Mean Corpuscular Hemoglobin 31 pg (27-31); Mean Corpuscular Volume 90 fL (80-97); Mean Platelet Volume 7.7 fL (7.4-10.4); Platelet Count 195 10^3/uL (150-450); Red Blood Count 4.94 10^6 /uL (3.70-4.87); Red Cell Distribution Width 14 % (10-15); White Blood Count 11.3 10^3/uL (3.5-10.8)
[2019-08-16 10:56] LABS: Activated Partial Thrombo Time 29.8 seconds (26.0-38.0); INR 0.95 (0.82-1.09)
[2019-08-16 10:58] LABS: Albumin 4.4 g/dL (3.2-5.2); Albumin/Globulin Ratio 1.9 (1-3); Calcium 10.4 mg/dL (8.6-10.3); EGFR African American 90.5 (>60); EGFR Non-African American 74.8 (>60); Globulin 2.3 g/dL (2-4); HDL Cholesterol 66.5 mg/dL; Potassium 4.1 mmol/L (3.5-5.0); Total Bilirubin 1.1 mg/dL (0.2-1.0); Total Protein 6.7 g/dL (6.4-8.9)
[2019-08-16] MEDS ORDERED: Iohexol 350* (CONTRAST) 500 ML MDV IV ONE (11:11)
[2019-08-16 13:14] LABS: Urine Appearance Clear; Urine Bilirubin Negative (Negative); Urine Blood Negative (Negative); Urine Color Straw; Urine Glucose Negative (Negative); Urine Ketones Negative (Negative); Urine Nitrite Negative (Negative); Urine Protein Negative (Negative); Urine Urobilinogen Negative (Negative)
[2019-08-16] MEDS ORDERED: Metoprolol Tartrate IV* 1 MG/ML 5 ML VIAL IV ONE (14:28)
--- NOTE | 2019-08-16 14:44 | CONSULT ---
Consult Consult: Orthopedic Consultation Attending Provider: Dr Jefe Wynne Date of Consultation: 08/16/19 Date of Admission: 08/16/19 CC: left hip pain History: Patient is an 83 yo female with PMHx HTN, Alzheimers, cerebral shunt who presents after a mechanical fall at home with resultant left hip pain. Fall occurred while she was in her kitchen, she turned too quickly and lost her balance. Upon striking the floor she had immediate left hip pain and no other complaints. No chest pain, shortness of breath, dizziness or nausea associated with the fall. She did not hit her head or loose consciousness. Denies any weakness or numbness of the left leg. Has a history of left hip hemiarthroplasty roughly 3 years ago, family is unsure where. Uses a cane to walk at baseline, though was not using it at the time of the fall. Of note she has a chronic facial droop which is unchanged since the events surrounding this fall. Allergies: NKDA Surgical History: L hip hemiarthroplasty, hysterectomy, R shoulder replacement , tonsilectomy, appendectomy, meningioma excision Past medical history: HTN, alzheimers, cerebral shunt Social: Lives at home with her with sporadic help from family. Uses a cane to walk at baseline. Home Meds: Atorvastatin* [Lipitor 10 MG*] 40 mg PO QPM 05/17/14 [History Confirmed 08/16/19 ] Cyanocobalamin (Vitamin B-12) [Vitamin B-12] 1,000 mcg PO DAILY 05/17/14 [ History Confirmed 08/16/19] Donepezil TAB* [Aricept 5 MG TAB*] 10 mg PO QPM 05/17/14 [History Confirmed ] Memantine TAB* [Namenda TAB*] 10 mg PO QPM 05/17/14 [History Confirmed 08/16/19] levETIRAcetam [Keppra 500] 500 mg PO BID 12/05/16 [History Confirmed 08/16/19] Cholecalciferol CAP/TAB(NF) [Vitamin D3 CAP/TAB (NF)] 2,000 unit PO DAILY [History Confirmed 08/16/19] Metoprolol Succinate XL TAB* [Toprol XL TAB*] 25 mg PO DAILY 08/16/19 [History Confirmed 08/16/19] Olmesartan (NF) [Benicar (NF)] 20 mg PO DAILY 08/16/19 [History Confirmed ] Review of Systems: General: Negative for Fever, Chills HEENT: Negative for head trauma. Cardio: No irregular heartbeats, Chest Pain Resp: No Shortness of Breath or Cough. Abd: no Abdominal Pain, Vomiting, Diarrhea, Nausea : no dysuria MSK: + left hip pain Neuro: Sensation intact throughout all extremities without numbness or parasthesias Skin: No rash or lesions. Physical Exam: Vitals: Vital Signs Temp 98.4 F 08/16/19 14:45 Pulse 105 08/16/19 14:45 Resp 27 08/16/19 14:45 BP 182/112 08/16/19 14:45 Pulse Ox 97 08/16/19 14:45 Intake & Output 08/15/19 08/16/19 08/16/19 18:59 06:59 18:59 Intake Total 1000 Balance 1000 Weight 140 lb Intake: IV Fluids 1000 General: Well appearing, NAD, alert and oriented to person, place and time HEENT: NCAT. L facial droop, EOMi, moist mucus membranes Cardio: S1S2 Resp: CTA BL ABD: Nontender to palpation, no guarding or rigidity. MSK Upper Extremities: Skin envelope intact, no obvious deformity, nontender to palpation. Active flexion and extension of digits, wrists, elbows without associated pain. Shoulders with nonpainful active forward flexion and abduction. MSK Lower Extremities: Skin envelope intact, no obvious nataly deformity, nontender to palpation. Active nonpainful flexion and extension of digits, ankle , knee and hip. Negative log roll at the hips Neuro: Sensation intact to light touch throughout bilateral upper and lower extremities Vascular: Radial pulse 2+ bilaterally, DP pulse 2+ bilaterally. Capillary refill less than two seconds distally bilateral upper and lower extremities Psych: Appropriate affect. Skin: No rash or lesions. No open fractures. Diagnostic Studies: IMPRESSION: 1. LEFT INFERIOR PUBIC RAMUS FRACTURE. 2. STATUS POST LEFT HIP ARTHROPLASTY. 3. OSTEOPENIA. Assessment: left inferior pubic ramus fracture. Plan: Patient can be weight bearing as tolerated with assistive device. Will need repeat xrays once patient is mobilizing - recommend standing WB inlet/ outlet view of pelvis. Follow up with orthopedics in 2 weeks. Discussed case with Dr Wynne who agrees with assessment and plan.
[2019-08-16] MEDS: Metoprolol Succinate XL TAB* 25 MG PO SCH ×2 (15:13→17:00)
[2019-08-16] MEDS: Acetaminophen TAB* 325 MG PO PRN ×2 (15:23→20:41)
[2019-08-16] MEDS: Valsartan TAB* 160 MG PO SCH (17:46)
[2019-08-16] MEDS: Memantine TAB* 10 MG PO SCH (17:46)
[2019-08-16] MEDS: Atorvastatin* 40 MG TAB PO SCH (17:46)
[2019-08-16] MEDS: Donepezil TAB* 5 MG PO SCH (17:46)
--- NOTE | 2019-08-16 18:13 | HP ---
CC: Dr. Nanette May; Dr. Jefe Wynne HISTORY AND PHYSICAL: DATE OF ADMISSION: 08/16/19 PRIMARY CARE PROVIDER: Dr. Nanette May. CHIEF COMPLAINT: Status post fall, left hip pain. SUBJECTIVE: This is an 83-year-old female who is known to have history of hypertension, mild dementi a, cerebral shunt, follows with Dr. Velázquez of Neurology, who fell yesterday while she was getting gl ass of water, upon turning she lost balance and fell. Her was able to assist her. She had m inimal pain last evening; however, shortly in the middle of the night and since early this morning, s he has been complaining of severe left hip pain, having difficulty bearing weight. They called the am bulance and they brought her to the emergency room. Initially when she presented to the emergency ro om, they did call a cr durant as she does have a right-sided facial droop, which was explained to the ER on presentation. She had CTA head and neck, which did not reveal any acute occlusion. She has a stable left frontal meningioma with chronic small vessel disease. No aneurysm, vascular inflammation , or occlusion. When the daughter came in and the , they were able to collaborate that the ri ght facial droop and weakness have been present for over than 8 years. Then, skeletal survey reveale d left pubic ramus fracture on the inferior. Due to inability to ambulate, medicine service was call ed to evaluate and admit the patient. The patient was seen and evaluated in the emergency room. His tory was obtained as above. PAST MEDICAL HISTORY: 1. Hypertension. 2. Mild Alzheimer's dementia. 3. History of cerebral shunt. 4. History of CVA and TIA. 5. History of seizure disorder. 6. Hyperlipidemia. 7. Hypothyroidism. 8. History of acoustic neuroma. PAST SURGICAL HISTORY: 1. Thyroidectomy. 2. Hysterectomy. 3. Left total hip arthroplasty. 4. Shoulder replacement. MEDICATIONS: 1. Benicar 20 mg daily. 2. Toprol-XL 25 daily. 3. Namenda 10 mg at night. 4. Keppra 500 b.i.d. 5. Aricept 10 mg daily. 6. Lipitor 40 daily. 7. Vitamin B12 1000 mcg daily. 8. Vitamin D. ALLERGIES: No known drug allergies. FAMILY HISTORY: Reviewed and noncontributory. SOCIAL HISTORY: No tobacco, alcohol, or recreational drugs. 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 REVIEW OF SYSTEMS: There is no chest pain, no dizziness, no lightheadedness, no muscle weakness, no focal weakness, no numbness, no urine or stool incontinence, no loss of consciousness; no abdominal p ain, nausea, or vomiting. Remaining otherwise negative. PHYSICAL EXAMINATION GENERAL: She is awake, alert. She does have right facial droop with intact speech and minimal stutt ering, otherwise unremarkable. VITAL SIGNS: Blood pressure is 182/112, on arrival to the floor was 210/88; pulse 68; respiratory ra te 18; satting 93%. HEENT: Head and Neck: Normocephalic, atraumatic. Supple. LUNGS: Clear to auscultation bilaterally. CARDIOVASCULAR: S1, S2. Rate is regular. ABDOMEN: Positive bowel sounds. Soft, nontender, nondistended. EXTREMITIES: She does have pain with passive and active range of motion of the left lower extremity. Right lower extremity unremarkable. DIAGNOSTIC STUDIES/LAB DATA: She had the following: CBC: White count 11,000, hemoglobin 15, hemat ocrit 45, platelets 195. Coa.9 INR. Chemistry: Sodium 139, potassium 4.1, BUN 20, creatinine 0.7, glucose 108, lactic acid 1.1, calcium 10.4. AST 21, ALT 20. Troponin 0. Urinalysis unremarkab le. EKG shows sinus rhythm, rate 84, MD 131, QTc 420, QRS 76. Imaging: She had a CT scan of the left hip, which shows left inferior pubic ramus fracture, status p ost left hip arthroplasty, osteopenia. IMPRESSION AND PLAN: This is an 83-year-old female admitted for accidental fall, left hip pubic corey s inferior fracture for pain control and difficulty ambulating. 1. Left inferior pubic ramus fracture. Admit to Medicine, observation status. PT/OT for safe dispos ition to home versus placement. Orthopedic consult for further input. We will place her on bedrest until seen by Ortho. Pain management is Tylenol with oxycodone to avoid delirium in this patient who has underlying dementia. 2. Hypertension. Quite elevated now. We will resume her home medications. First dose of metoprolo l and ARB, substituted Diovan 160 now, then clonidine 0.1 q.4 p.r.n. for blood pressure greater than 180 systolic or diastolic greater than 100. 3. History of seizure. Continue Keppra 500 b.i.d. 4. History of dementia. Continue donepezil and Namenda. 5. History of hyperlipidemia. Continue Lipitor. 6. DVT prophylaxis. Heparin 5000 q.12. 7. Code status. Full code. [id number] #: [id number]
[2019-08-16] MEDS: levETIRAcetam TAB* 500 MG PO SCH (20:38)
[2019-08-16] MEDS: cloNIDine TAB* 0.1 MG PO PRN (20:39)
[2019-08-16] MEDS: Heparin VIAL(*) 5000 UNITS/ML VIAL (FIVE THOUSAND) SUBCUT SCH (20:44)
[2019-08-17] MEDS: cloNIDine TAB* 0.1 MG PO PRN (03:30)
[2019-08-17] MEDS: Acetaminophen TAB* 325 MG PO PRN (05:54)
[2019-08-17 06:34] LABS: ABS Eosinophils 0.1 10^3/ul (0-0.6); ABS Lymphocytes 0.9 10^3/ul (1.0-4.8); ABS Monocytes 0.5 10^3/ul (0-0.8); ABS Neutrophils 8.7 10^3/ul (1.5-7.7); Eosinophil % 0.6 %; Hematocrit 42 % (35-47); Hemoglobin 14.8 g/dL (12.0-16.0); Lymphocyte % 8.7 %; Mean Corpuscular HGB Conc 35 g/dL (31-36); Mean Corpuscular Hemoglobin 31 pg (27-31); Mean Corpuscular Volume 90 fL (80-97); Mean Platelet Volume 7.7 fL (7.4-10.4); Nucleated Red Blood Cells % 0.1; Platelet Count 170 10^3/uL (150-450); Red Blood Count 4.73 10^6 /uL (3.70-4.87); Red Cell Distribution Width 13 % (10-15); White Blood Count 10.1 10^3/uL (3.5-10.8)
[2019-08-17 06:41] LABS: INR 1.02 (0.82-1.09)
[2019-08-17 06:46] LABS: BUN/Creatinine Ratio 23.3 (8-20); Calcium 9.5 mg/dL (8.6-10.3); EGFR African American 115.2 (>60); EGFR Non-African American 95.2 (>60); Magnesium 1.8 mg/dL (1.9-2.7); Phosphorus 2.5 mg/dL (2.5-5.0); Potassium 3.6 mmol/L (3.5-5.0)
[2019-08-17] MEDS ORDERED: Valsartan TAB* 160 MG PO SCH (09:00)
[2019-08-17] MEDS: Metoprolol Succinate XL TAB* 25 MG PO SCH (10:25)
[2019-08-17] MEDS: levETIRAcetam TAB* 500 MG PO SCH ×2 (10:25→20:35)
[2019-08-17] MEDS: Valsartan TAB* 160 MG PO SCH (10:25)
[2019-08-17] MEDS: Heparin VIAL(*) 5000 UNITS/ML VIAL (FIVE THOUSAND) SUBCUT SCH ×2 (10:25→20:37)
--- NOTE | 2019-08-17 12:32 | PN ---
Progress Note - Progress Note Date of Service: 08/17/19 SOAP: Subjective: []Pt seen at bedside. No complaints today. Objective: []Gen: NAD, appears well LLE: skin envelope intact, no abnormal rotation of the limb, f/e mtps, ankle, knee and hip without pain. Able to sit to stand with 2 assist and bear weight to transfer to [facility] supple and nontender Assessment: []L pubic ramus fracture Plan: []WBAT with assistive device Needs post ambulation xrays once up and moving and fu ortho 2-3 weeks Vital Signs Temp 98.7 F 08/17/19 11:15 Pulse 67 08/17/19 11:15 Resp 16 08/17/19 11:15 BP 141/75 08/17/19 11:15 Pulse Ox 96 08/17/19 11:15 Intake & Output 08/16/19 08/17/19 08/17/19 18:59 06:59 18:59 Intake Total 1100 240 120 Balance 1100 240 120 Weight 137 lb 14.4 oz Intake: IV Fluids 1000 Oral 100 240 120 Other: Estimated Void Medium # Bowel Movements 0 # Voids 1 Laboratory Last Values WBC 10.1 10^3/uL (3.5-10.8) 08/17/19 06:04 RBC 4.73 10^6 /uL (3.70-4.87) 08/17/19 06:04 Hgb 14.8 g/dL (12.0-16.0) 08/17/19 06:04 Hct 42 % (35-47) 08/17/19 06:04 MCV 90 fL (80-97) 08/17/19 06:04 MCH 31 pg (27-31) 08/17/19 06:04 MCHC 35 g/dL (31-36) 08/17/19 06:04 RDW 13 % (10-15) 08/17/19 06:04 Plt Count 170 10^3/uL (150-450) 08/17/19 06:04 MPV 7.7 fL (7.4-10.4) 08/17/19 06:04 Neut % (Auto) 85.5 % 08/17/19 06:04 Lymph % (Auto) 8.7 % 08/17/19 06:04 Tucker % (Auto) 4.9 % 08/17/19 06:04 Eos % (Auto) 0.6 % 08/17/19 06:04 Baso % (Auto) 0.3 % 08/17/19 06:04 Absolute Neuts (auto) 8.7 10^3/ul (1.5-7.7) H 08/17/19 06:04 Absolute Lymphs (auto) 0.9 10^3/ul (1.0-4.8) L 08/17/19 06:04 Absolute Monos (auto) 0.5 10^3/ul (0-0.8) 08/17/19 06:04 Absolute Eos (auto) 0.1 10^3/ul (0-0.6) 08/17/19 06:04 Absolute Basos (auto) 0.0 10^3/ul (0-0.2) 08/17/19 06:04 Absolute Nucleated RBC 0.0 10^3/ul 08/17/19 06:04 Nucleated RBC % 0.1 08/17/19 06:04 INR (Anticoag Therapy) 1.02 (0.82-1.09) 08/17/19 06:04 APTT 29.8 seconds (26.0-38.0) 08/16/19 10:16 Sodium 138 mmol/L (135-145) 08/17/19 06:04 Potassium 3.6 mmol/L (3.5-5.0) 08/17/19 06:04 Chloride 104 mmol/L (101-111) 08/17/19 06:04 Carbon Dioxide 26 mmol/L (22-32) 08/17/19 06:04 Anion Gap 8 mmol/L (2-11) 08/17/19 06:04 BUN 14 mg/dL (6-24) 08/17/19 06:04 Creatinine 0.60 mg/dL (0.51-0.95) 08/17/19 06:04 Est GFR ( Amer) 115.2 (>60) 08/17/19 06:04 Est GFR (Non-Af Amer) 95.2 (>60) 08/17/19 06:04 BUN/Creatinine Ratio 23.3 (8-20) H 08/17/19 06:04 Glucose 117 mg/dL (70-100) H 08/17/19 06:04 POC Glucose (mg/dL) 105 mg/dL (70-100) H 08/16/19 10:52 Lactic Acid 1.1 mmol/L (0.5-2.0) 08/16/19 10:16 Calcium 9.5 mg/dL (8.6-10.3) 08/17/19 06:04 Phosphorus 2.5 mg/dL (2.5-5.0) 08/17/19 06:04 Magnesium 1.8 mg/dL (1.9-2.7) L 08/17/19 06:04 Total Bilirubin 1.10 mg/dL (0.2-1.0) H 08/16/19 10:16 AST 21 U/L (13-39) 08/16/19 10:16 ALT 20 U/L (7-52) 08/16/19 10:16 Alkaline Phosphatase 101 U/L (34-104) 08/16/19 10:16 Troponin I 0.00 ng/mL (<0.04) 08/16/19 10:16 Total Protein 6.7 g/dL (6.4-8.9) 08/16/19 10:16 Albumin 4.4 g/dL (3.2-5.2) 08/16/19 10:16 Globulin 2.3 g/dL (2-4) 08/16/19 10:16 Albumin/Globulin Ratio 1.9 (1-3) 08/16/19 10:16 Triglycerides 97 mg/dL 08/16/19 10:16 Cholesterol 161 mg/dL 08/16/19 10:16 LDL Cholesterol 75 mg/dL 08/16/19 10:16 HDL Cholesterol 66.5 mg/dL 08/16/19 10:16 Urine Color Straw 08/16/19 12:10 Urine Appearance Clear 08/16/19 12:10 Urine pH 7.0 (5-9) 08/16/19 12:10 Ur Specific [place] 1.010 (1.010-1.030) 08/16/19 12:10 Urine Protein Negative (Negative) 08/16/19 12:10 Urine Ketones Negative (Negative) 08/16/19 12:10 Urine Blood Negative (Negative) 08/16/19 12:10 Urine Nitrate Negative (Negative) 08/16/19 12:10 Urine Bilirubin Negative (Negative) 08/16/19 12:10 Urine Urobilinogen Negative (Negative) 08/16/19 12:10 Ur Leukocyte Esterase Negative (Negative) 08/16/19 12:10 Urine Glucose Negative (Negative) 08/16/19 12:10
--- NOTE | 2019-08-17 15:18 | PN ---
Subjective Date of Service: 08/17/19 Interval History: Pain controlled Unable to move much Objective Active Medications: Acetaminophen (Tylenol Tab*) 650 mg PO Q4H PRN PRN Reason: PAIN Last Admin: 08/17/19 05:54 Dose: 650 mg Atorvastatin Calcium (Lipitor*) 40 mg PO QPM [facility] Last Admin: 08/16/19 17:46 Dose: 40 mg Donepezil HCl (Aricept Tab*) 10 mg PO QPM [facility] Last Admin: 08/16/19 17:46 Dose: 10 mg Heparin Sodium (Porcine) (Heparin Vial(*)) 5,000 units SUBCUT Q12HR [facility] Last Admin: 08/17/19 10:25 Dose: 5,000 units Levetiracetam (Keppra Tab*) 500 mg PO BID [facility] Last Admin: 08/17/19 10:25 Dose: 500 mg Memantine (Namenda Tab*) 10 mg PO QPM [facility] Last Admin: 08/16/19 17:46 Dose: 10 mg Metoprolol Succinate (Toprol Xl Tab*) 25 mg PO DAILY [facility] Last Admin: 08/17/19 10:25 Dose: 25 mg Oxycodone HCl (Roxycodone Tab*) 2.5 mg PO Q4H PRN PRN Reason: PAIN - SEVERE Valsartan (Diovan Tab*) 160 mg PO DAILY [facility] Last Admin: 08/17/19 10:25 Dose: 160 mg Vital Signs - 8 hr 08/17/19 08/17/19 08:00 11:15 Temperature 98.7 F Pulse Rate 67 Respiratory 18 16 Rate Blood Pressure 141/75 (mmHg) O2 Sat by Pulse 100 96 Oximetry Oxygen Devices in Use Now: None Eyes: No Scleral Icterus Ears/Nose/Mouth/Throat: NL Teeth, Lips, Gums Neck: NL Appearance and Movements; NL JVP Respiratory: Symmetrical Chest Expansion and Respiratory Effort Cardiovascular: NL Sounds; No Murmurs; No JVD Abdominal: NL Sounds; No Tenderness; No Distention Extremities: No Edema Skin: No Rash or Ulcers Neurological: Alert and Oriented x 3 Result Diagrams: 08/17/19 06:04 08/17/19 06:04 Assess/Plan/Problems-Billing Assessment: - Patient Problems (1) Pubic ramus fracture Current Visit: Yes Status: Acute Code(s): S32.599A - OTH FRACTURE OF UNSP PUBIS, INIT ENCNTR FOR CLOSED FRACTURE SNOMED Code(s): 01368108 Comment: conservative management seen by ortho weight bearing as tolerated pt/ot mostly needs sub acute rehab (2) Hypertension Current Visit: Yes Status: Acute Code(s): I10 - ESSENTIAL (PRIMARY) HYPERTENSION SNOMED Code(s): 09950502 Comment: Continue valsartan and metoprolol (3) DVT prophylaxis Current Visit: No Status: Acute Code(s): LHQ1152 - SNOMED Code(s): 323953824 (4) Seizure Current Visit: Yes Status: Acute Code(s): R56.9 - UNSPECIFIED CONVULSIONS SNOMED Code(s): 69001550 Comment: continue keppra h/o seizure
[2019-08-17] MEDS: Donepezil TAB* 5 MG PO SCH (17:09)
[2019-08-17] MEDS: Atorvastatin* 40 MG TAB PO SCH (17:09)
[2019-08-17] MEDS: Memantine TAB* 10 MG PO SCH (17:09)
[2019-08-18] MEDS: hydrALAZINE IV* 20 MG/ML VIAL IV SLOW PU PRN ×2 (00:37→23:27)
[2019-08-18] MEDS ORDERED: hydrALAZINE IV* 20 MG/ML VIAL IV SLOW PU ONE (04:20)
[2019-08-18 06:09] LABS: ABS Eosinophils 0.1 10^3/ul (0-0.6); ABS Monocytes 0.7 10^3/ul (0-0.8); ABS Neutrophils 8.9 10^3/ul (1.5-7.7); Eosinophil % 0.5 %; Hematocrit 44 % (35-47); Hemoglobin 15.3 g/dL (12.0-16.0); Lymphocyte % 9.2 %; Mean Corpuscular HGB Conc 35 g/dL (31-36); Mean Corpuscular Hemoglobin 31 pg (27-31); Mean Corpuscular Volume 89 fL (80-97); Mean Platelet Volume 7.7 fL (7.4-10.4); Platelet Count 192 10^3/uL (150-450); Red Blood Count 4.94 10^6 /uL (3.70-4.87); Red Cell Distribution Width 13 % (10-15); White Blood Count 10.6 10^3/uL (3.5-10.8)
[2019-08-18 06:32] LABS: BUN/Creatinine Ratio 21.7 (8-20); Calcium 9.4 mg/dL (8.6-10.3); EGFR African American 115.2 (>60); EGFR Non-African American 95.2 (>60); Potassium 3.2 mmol/L (3.5-5.0)
[2019-08-18] MEDS: Acetaminophen TAB* 325 MG PO PRN ×2 (08:25→14:13)
[2019-08-18] MEDS: Metoprolol Succinate XL TAB* 25 MG PO SCH (08:26)
[2019-08-18] MEDS: levETIRAcetam TAB* 500 MG PO SCH ×2 (08:26→20:24)
[2019-08-18] MEDS: Valsartan TAB* 160 MG PO SCH (08:26)
[2019-08-18] MEDS: Heparin VIAL(*) 5000 UNITS/ML VIAL (FIVE THOUSAND) SUBCUT SCH ×2 (08:27→20:24)
--- NOTE | 2019-08-18 10:58 | PN ---
Progress Note - Progress Note Date of Service: 08/18/19 SOAP: Subjective: []Pt seen at bedside. She feels well without CP, SOB, dizziness, nausea. No complaints of pain. Objective: []Gen: NAD, appears well LLE: skin envelope intact, no abnormal rotation of the limb, f/e mtps, ankle, knee and hip without pain. Calves supple and nontender Assessment: []L pubic ramus fracture Plan: []WBAT with assistive device has been up walking with walker, ordered post ambulation xrays fu ortho 2-3 weeks Vital Signs Temp 97.5 F 08/18/19 03:15 Pulse 74 08/18/19 03:15 Resp 20 08/18/19 03:15 BP 172/80 08/18/19 03:15 Pulse Ox 95 08/18/19 03:15 Intake & Output 08/17/19 08/18/19 08/18/19 18:59 06:59 18:59 Intake Total 760 0 100 Balance 760 0 100 Intake: Oral 760 0 100 Other: Estimated Void Medium Medium # Bowel Movements 0 0 # Voids 1 1 Laboratory Last Values WBC 10.6 10^3/uL (3.5-10.8) 08/18/19 05:41 RBC 4.94 10^6 /uL (3.70-4.87) H 08/18/19 05:41 Hgb 15.3 g/dL (12.0-16.0) 08/18/19 05:41 Hct 44 % (35-47) 08/18/19 05:41 MCV 89 fL (80-97) 08/18/19 05:41 MCH 31 pg (27-31) 08/18/19 05:41 MCHC 35 g/dL (31-36) 08/18/19 05:41 RDW 13 % (10-15) 08/18/19 05:41 Plt Count 192 10^3/uL (150-450) 08/18/19 05:41 MPV 7.7 fL (7.4-10.4) 08/18/19 05:41 Neut % (Auto) 83.6 % 08/18/19 05:41 Lymph % (Auto) 9.2 % 08/18/19 05:41 [place] % (Auto) 6.4 % 08/18/19 05:41 Eos % (Auto) 0.5 % 08/18/19 05:41 Baso % (Auto) 0.3 % 08/18/19 05:41 Absolute Neuts (auto) 8.9 10^3/ul (1.5-7.7) H 08/18/19 05:41 Absolute Lymphs (auto) 1.0 10^3/ul (1.0-4.8) 08/18/19 05:41 Absolute Monos (auto) 0.7 10^3/ul (0-0.8) 08/18/19 05:41 Absolute Eos (auto) 0.1 10^3/ul (0-0.6) 08/18/19 05:41 Absolute Basos (auto) 0.0 10^3/ul (0-0.2) 08/18/19 05:41 Absolute Nucleated RBC 0.0 10^3/ul 08/18/19 05:41 Nucleated RBC % 0.0 08/18/19 05:41 INR (Anticoag Therapy) 1.02 (0.82-1.09) 08/17/19 06:04 APTT 29.8 seconds (26.0-38.0) 08/16/19 10:16 Sodium 136 mmol/L (135-145) 08/18/19 05:41 Potassium 3.2 mmol/L (3.5-5.0) L 08/18/19 05:41 Chloride 102 mmol/L (101-111) 08/18/19 05:41 Carbon Dioxide 24 mmol/L (22-32) 08/18/19 05:41 Anion Gap 10 mmol/L (2-11) 08/18/19 05:41 BUN 13 mg/dL (6-24) 08/18/19 05:41 Creatinine 0.60 mg/dL (0.51-0.95) 08/18/19 05:41 Est GFR ( Amer) 115.2 (>60) 08/18/19 05:41 Est GFR (Non-Af Amer) 95.2 (>60) 08/18/19 05:41 BUN/Creatinine Ratio 21.7 (8-20) H 08/18/19 05:41 Glucose 117 mg/dL (70-100) H 08/18/19 05:41 POC Glucose (mg/dL) 105 mg/dL (70-100) H 08/16/19 10:52 Lactic Acid 1.1 mmol/L (0.5-2.0) 08/16/19 10:16 Calcium 9.4 mg/dL (8.6-10.3) 08/18/19 05:41 Phosphorus 2.5 mg/dL (2.5-5.0) 08/17/19 06:04 Magnesium 1.8 mg/dL (1.9-2.7) L 08/17/19 06:04 Total Bilirubin 1.10 mg/dL (0.2-1.0) H 08/16/19 10:16 AST 21 U/L (13-39) 08/16/19 10:16 ALT 20 U/L (7-52) 08/16/19 10:16 Alkaline Phosphatase 101 U/L (34-104) 08/16/19 10:16 Troponin I 0.00 ng/mL (<0.04) 08/16/19 10:16 Total Protein 6.7 g/dL (6.4-8.9) 08/16/19 10:16 Albumin 4.4 g/dL (3.2-5.2) 08/16/19 10:16 Globulin 2.3 g/dL (2-4) 08/16/19 10:16 Albumin/Globulin Ratio 1.9 (1-3) 08/16/19 10:16 Triglycerides 97 mg/dL 08/16/19 10:16 Cholesterol 161 mg/dL 08/16/19 10:16 LDL Cholesterol 75 mg/dL 08/16/19 10:16 HDL Cholesterol 66.5 mg/dL 08/16/19 10:16 Urine Color Straw 08/16/19 12:10 Urine Appearance Clear 08/16/19 12:10 Urine pH 7.0 (5-9) 08/16/19 12:10 Ur Specific [place] 1.010 (1.010-1.030) 08/16/19 12:10 Urine Protein Negative (Negative) 08/16/19 12:10 Urine Ketones Negative (Negative) 08/16/19 12:10 Urine Blood Negative (Negative) 08/16/19 12:10 Urine Nitrate Negative (Negative) 08/16/19 12:10 Urine Bilirubin Negative (Negative) 08/16/19 12:10 Urine Urobilinogen Negative (Negative) 08/16/19 12:10 Ur Leukocyte Esterase Negative (Negative) 08/16/19 12:10 Urine Glucose Negative (Negative) 08/16/19 12:10
[2019-08-18] MEDS: oxyCODONE TAB* 5 MG TAB PO PRN ×2 (14:15→20:30)
[2019-08-18] MEDS ORDERED: Potassium Chlor TAB* 20 MEQ TAB.ER PO ONE (15:39)
[2019-08-18] MEDS ORDERED: Magnesium Sulfate 2 GM IV* 2 GM/50 ML BAG IVPB ONE (15:41)
--- NOTE | 2019-08-18 15:46 | PN ---
Subjective Date of Service: 08/18/19 Interval History: No complaints. May have a bed at rehab tomorrow Objective Active Medications: Acetaminophen (Tylenol Tab*) 650 mg PO Q4H PRN PRN Reason: PAIN Last Admin: 08/18/19 14:13 Dose: 650 mg Atorvastatin Calcium (Lipitor*) 40 mg PO QPM [facility] Last Admin: 08/17/19 17:09 Dose: 40 mg Donepezil HCl (Aricept Tab*) 10 mg PO QPM [facility] Last Admin: 08/17/19 17:09 Dose: 10 mg Heparin Sodium (Porcine) (Heparin Vial(*)) 5,000 units SUBCUT Q12HR [facility] Last Admin: 08/18/19 08:27 Dose: 5,000 units Hydralazine HCl (Apresoline Iv*) 5 mg IV SLOW PU Q6H PRN PRN Reason: Systolic Bp Greater Than:160 Last Admin: 08/18/19 00:37 Dose: 5 mg Magnesium Sulfate (Magnesium Sulfate 2 Gm Iv*) 2 gm in 50 mls @ 50 mls/hr IVPB ONCE ONE Stop: 08/18/19 16:40 Levetiracetam (Keppra Tab*) 500 mg PO BID [facility] Last Admin: 08/18/19 08:26 Dose: 500 mg Memantine (Namenda Tab*) 10 mg PO QPM [facility] Last Admin: 08/17/19 17:09 Dose: 10 mg Metoprolol Succinate (Toprol Xl Tab*) 25 mg PO DAILY [facility] Last Admin: 08/18/19 08:26 Dose: 25 mg Oxycodone HCl (Roxycodone Tab*) 2.5 mg PO Q4H PRN PRN Reason: PAIN - SEVERE Last Admin: 08/18/19 14:15 Dose: 2.5 mg Valsartan (Diovan Tab*) 160 mg PO DAILY [facility] Last Admin: 08/18/19 08:26 Dose: 160 mg Vital Signs - 8 hr 08/18/19 08/18/19 08/18/19 08:00 11:15 14:15 Temperature 97.6 F Pulse Rate 72 Respiratory 18 18 18 Rate Blood Pressure 139/70 (mmHg) O2 Sat by Pulse 96 96 Oximetry Oxygen Devices in Use Now: None Eyes: No Scleral Icterus Ears/Nose/Mouth/Throat: NL Teeth, Lips, Gums Neck: NL Appearance and Movements; NL JVP Respiratory: Symmetrical Chest Expansion and Respiratory Effort Cardiovascular: NL Sounds; No Murmurs; No JVD Abdominal: NL Sounds; No Tenderness; No Distention Extremities: No Edema Neurological: Alert and Oriented x 3 Result Diagrams: 08/18/19 05:41 08/18/19 05:41 Assess/Plan/Problems-Billing Assessment: - Patient Problems (1) Pubic ramus fracture Current Visit: Yes Status: Acute Code(s): S32.599A - OTH FRACTURE OF UNSP PUBIS, INIT ENCNTR FOR CLOSED FRACTURE SNOMED Code(s): 37386504 Comment: conservative management seen by ortho weight bearing as tolerated pt/ot mostly needs sub acute rehab (2) Hypertension Current Visit: Yes Status: Acute Code(s): I10 - ESSENTIAL (PRIMARY) HYPERTENSION SNOMED Code(s): 01737358 Comment: Continue valsartan and metoprolol (3) DVT prophylaxis Current Visit: No Status: Acute Code(s): UAX0844 - SNOMED Code(s): 780040453 (4) Seizure Current Visit: Yes Status: Acute Code(s): R56.9 - UNSPECIFIED CONVULSIONS SNOMED Code(s): 98867702 Comment: continue keppra h/o seizure (5) Hypokalemia Current Visit: Yes Status: Acute Code(s): E87.6 - HYPOKALEMIA SNOMED Code( s): 71567903 Comment: will replace (6) Hypomagnesemia Current Visit: Yes Status: Acute Code(s): E83.42 - HYPOMAGNESEMIA SNOMED Code(s): 833344274 Comment: 2g iv mg today recheck in am
[2019-08-18] MEDS: Memantine TAB* 10 MG PO SCH (16:24)
[2019-08-18] MEDS: Donepezil TAB* 5 MG PO SCH (16:24)
[2019-08-18] MEDS: Atorvastatin* 40 MG TAB PO SCH (16:24)
[2019-08-19] MEDS: amLODIPine TAB* 5 MG PO SCH ×2 (00:43→10:20)
[2019-08-19] MEDS: oxyCODONE TAB* 5 MG TAB PO PRN ×2 (01:24→07:56)
[2019-08-19] MEDS: Acetaminophen TAB* 325 MG PO PRN ×2 (01:25→11:14)
[2019-08-19 05:37] LABS: ABS Eosinophils 0.1 10^3/ul (0-0.6); ABS Lymphocytes 1.3 10^3/ul (1.0-4.8); ABS Monocytes 0.8 10^3/ul (0-0.8); ABS Neutrophils 8.1 10^3/ul (1.5-7.7); Eosinophil % 0.6 %; Hematocrit 43 % (35-47); Hemoglobin 14.5 g/dL (12.0-16.0); Lymphocyte % 12.8 %; Mean Corpuscular HGB Conc 34 g/dL (31-36); Mean Corpuscular Hemoglobin 31 pg (27-31); Mean Corpuscular Volume 90 fL (80-97); Mean Platelet Volume 7.7 fL (7.4-10.4); Platelet Count 216 10^3/uL (150-450); Red Blood Count 4.75 10^6 /uL (3.70-4.87); Red Cell Distribution Width 13 % (10-15); White Blood Count 10.2 10^3/uL (3.5-10.8)
[2019-08-19 05:53] LABS: Calcium 9.1 mg/dL (8.6-10.3); Magnesium 2.2 mg/dL (1.9-2.7)
[2019-08-19 05:59] LABS: BUN/Creatinine Ratio 23.9 (8-20); EGFR African American 101.5 (>60); EGFR Non-African American 83.9 (>60)
[2019-08-19 06:23] LABS: Potassium 4.1 mmol/L (3.5-5.0)
[2019-08-19] MEDS: Heparin VIAL(*) 5000 UNITS/ML VIAL (FIVE THOUSAND) SUBCUT SCH (10:19)
[2019-08-19] MEDS: Valsartan TAB* 160 MG PO SCH (10:20)
[2019-08-19] MEDS: levETIRAcetam TAB* 500 MG PO SCH (10:20)
[2019-08-19] MEDS: Metoprolol Succinate XL TAB* 25 MG PO SCH (10:20)
[2019-08-19 11:19] VITALS: BP 128/66
[2019-08-19] MEDS ORDERED: Orphenadrine Citrate IV* 30 MG/ML 2 ML VIAL IV ONE (12:02)
[2019-08-19] MEDS ORDERED: oxyCODONE TAB* 5 MG TAB PO PRN (12:03)
--- NOTE | 2019-08-19 13:32 | DS ---
DISCHARGE SUMMARY: DATE OF ADMISSION: 08/16/19 DATE OF DISCHARGE: 08/19/19 PRIMARY DIAGNOSES: 1. Left inferior pubic ramus fracture. 2. Hypokalemia. 3. Hypomagnesemia. SECONDARY DIAGNOSES: 1. Hypertension. 2. Mild Alzheimer's dementia. 3. History of cerebral shunt. 4. History of cerebrovascular accident and transient ischemic attack. 5. History of seizure disorder. 6. Hyperlipidemia. 7. Hypothyroidism. 8. History of acoustic neuroma. 9. Thyroidectomy. 10. Hysterectomy. 11. Left total hip arthroplasty. 12. Shoulder replacement. HOSPITAL COURSE: An 83-year-old female with history of hypertension, dementia, cerebral shunt who fo llows with Dr. Velázquez of Neurology came in to the hospital after she fell down when she went to get a glass of water. No loss of consciousness. The patient complained of severe left hip pain with dif ficulty weightbearing. Initially, when she presented to the ER, they called a code durant as she had s ome right-sided facial droop and the patient had a CT of the head and neck, which did not reveal an a cute occlusion. She has stable left frontal meningioma with chronic small vessel disease, no aneurys m, no vascular inflammation or occlusion. Later, the daughter confirmed in the ER that the right fac ial droop and weakness have been present for over 8 years. Skeletal survey revealed a left pubic juan us fracture. The patient was admitted for further evaluation and seen by Orthopedic Surgery on 08/[address] Gibson's service. They recommended conservative management with weightbearing as tolerate d with assistive device. Also recommend repeating x-rays when the patient is mobilizing, recommend st anding WB inlet/outlet views of pelvis and they recommend following up with Orthopedics in two weeks. The patient worked with physical therapy, occupational therapy and was determined to require rehab and the patient at this time being discharged to [facility] for further rehab. The patient was al so noted to be hypokalemic, which was replaced and the patient was noted to be hypomagnesemic, which was also replaced. Repeat labs show adequate depletion. The patient has a history of seizure disord er and continues to take Keppra. Vitals and labs noted to be stable today at time of discharge. PHYSICAL EXAM AT TIME OF DISCHARGE: Vitals: Temperature 97.8, pulse 66, respiratory rate 18, blood pressure 128/66, oxygen saturation 97%. HEENT: NCAT. Heart: S1, S2 present. Regular at the time o f exam. Lungs: Clear to auscultation bilaterally. Abdomen: Soft. Extremities: Noted to have no edema. Neuro: Alert, oriented. MEDICATION LIST AT TIME OF DISCHARGE: 1. Cholecalciferol 2000 units daily. 2. Aricept 10 mg p.o. q.p.m. 3. Namenda 10 mg p.o. q.p.m. 4. Atorvastatin 40 mg p.o. q.p.m. 5. Keppra 500 mg p.o. b.i.d. 6. Metoprolol/Toprol XL 25 mg p.o. daily. 7. Vitamin B12 1000 mcg p.o. daily. 8. Benicar/olmesartan 20 mg p.o. daily. 9. Oxycodone 5 mg p.o. q.4 hours p.r.n. for pain. 10. Tylenol 650 mg p.o. q.4 hours for pain. LABS AT THE TIME OF DISCHARGE: WBC 10.2, hemoglobin 14.5, hematocrit 43, platelets noted to be 216,0 00. Sodium 133, potassium 4.1, chloride 103, CO2 of 21, BUN 16, creatinine 0.67, magnesium 2.2. IMAGING: The patient had a pelvis x-ray on 08/18/19, which showed fracture of the left inferior pubi c ramus without change since 08/16/19. The patient had initial hip-pelvis x-ray on 08/16/19, which s howed a left inferior pubic ramus fracture status post left hip arthroplasty, osteopenia. The patien t had a head CTA as mentioned above in the ER, which showed stable left frontal meningioma, chronic s mall vessel ischemic disease, atherosclerosis. No aneurysm, vascular malformation, occlusion or sten osis with visualized intracranial circulation. No internal carotid artery stenosis. The patient had a chest x-ray, which shows hyperinflation, no active cardiopulmonary disease. Overall, the patient's condition is noted to be stable at the time of discharge. DISPOSITION: [facility]. INSTRUCTIONS: 1. The patient is to follow up with her PCP as an outpatient. The patient to follow up with Orthoped ic Surgery as an outpatient. 2. The patient is to continue her rehab per advice of [facility]. TIME SPENT: Total time spent on discharge is equal to 45 minutes. [id number]/[facility] #: [id number]
== END 2019-08-19 14:30 | DRG 536 ==
LOC: ED 10:01 → MED 13:55 → OBSVTOIN 16:00
PROVIDERS: ADMIT Internal Medicine; ATTEND Internal Medicine
DX: S32.592A Other specified fracture of left pubis, initial encounter for closed fracture (principal); E87.6 Hypokalemia; E83.42 Hypomagnesemia; I10 Essential (primary) hypertension; G30.9 Alzheimer's disease, unspecified; F02.80 Dementia in other diseases classified elsewhere, unspecified severity, without behavioral disturbance, psychotic disturbance, mood disturbance, and anxiety; G40.909 Epilepsy, unspecified, not intractable, without status epilepticus; E78.5 Hyperlipidemia, unspecified; E89.0 Postprocedural hypothyroidism; Z96.642 Presence of left artificial hip joint; W19.XXXA Unspecified fall, initial encounter; D32.0 Benign neoplasm of cerebral meninges; K21.9 Gastro-esophageal reflux disease without esophagitis; M19.90 Unspecified osteoarthritis, unspecified site; F41.9 Anxiety disorder, unspecified; R29.810 Facial weakness; M85.88 Other specified disorders of bone density and structure, other site; M81.0 Age-related osteoporosis without current pathological fracture; Z96.611 Presence of right artificial shoulder joint; H91.92 Unspecified hearing loss, left ear; Z97.4 Presence of external hearing-aid; Z86.73 Personal history of transient ischemic attack (TIA), and cerebral infarction without residual deficits; Y92.9 Unspecified place or not applicable; Z90.710 Acquired absence of both cervix and uterus; Z80.3 Family history of malignant neoplasm of breast; Z87.891 Personal history of nicotine dependence
CPT/HCPCS: 36415; 70496; 70498; 71045; 72170; 80048; 80053; 80061; 81003; 83605; 83735; 84100; 84484; 85025; 85610; 85730; 93005; 99285; A9270-GY; G0378; G8978-GP-CK; G8979-GP-CI; G8987-GO-CL; G8988-GO-CI; J0360; J1644; J2360; J3475; J3490; Q9967